=== PATIENT | female | born 1960 | race Two or more races ===

== ENCOUNTER 2020-10-24 23:59 | Emergency (ER) | payer OTHER ==
[~2020-10-24] VITALS: Ht 170.2 cm; Wt 102.7 kg
[2020-10-25 00:02] VITALS: BP 123/77
== END 2020-10-25 00:10 | disposition home or self-care (01) ==
LOC: ER 10-25
DX: R44.8 Other symptoms and signs involving general sensations and perceptions (principal); F32.9 Major depressive disorder, single episode, unspecified; Z90.49 Acquired absence of other specified parts of digestive tract
CPT/HCPCS: 99281

== ENCOUNTER 2020-12-26 21:57 | Inpatient (IN) | payer OTHER ==
[~2020-12-26] VITALS: Ht 170.2 cm; Wt 112.0 kg
[2020-12-26] MEDS ORDERED: dexamethasone 4mg/ml inj IV ONE (22:35)
[2020-12-26 22:57] LABS: BASOPHILS % (AUTO) 0.3 % (0-1); EOSINOPHILS % (AUTO) 0.1 % (0-6); HEMATOCRIT 41.6 % (35.0-45.0); HEMOGLOBIN 14.4 g/dl (12.0-16.0); LYMPHOCYTES # (AUTO) 0.7 X10'3 (1.1-4.8); MEAN CORPUSCULAR HEMOGLOBIN 30.1 PG (27.0-31.0); MEAN CORPUSCULAR HGB CONC 34.6 g/dL (33.0-36.5); MEAN CORPUSCULAR VOLUME 87.2 FL (78-98); MEAN PLATELET VOLUME 8.4 FL (7.4-10.4); MONOCYTES # (AUTO) 0.5 X10'3 (0-0.9); MONOCYTES % (AUTO) 4.6 % (2-12); NEUTROPHILS # (AUTO) 9.8 X10'3 (1.8-7.7); PLATELET COUNT 219 X10'3 (140-440); RED BLOOD COUNT 4.77 X10'6 (4.20-5.60); RED CELL DISTRIBUTION WIDTH 13.9 % (11.5-14.5)
[2020-12-26 23:23] LABS: D-DIMER 0.61 MG/L FEU (0-0.50)
[2020-12-26 23:40] LABS: ALANINE AMINOTRANSFERASE 73 U/L (12-78); ALBUMIN 3.2 G/DL (3.4-5.0); ALBUMIN/GLOBULIN RATIO 0.7 (1.1-1.5); ALKALINE PHOSPHATASE 130 IU/L (46-116); ANION GAP 8 (8-16); ASPARTATE AMINO TRANSFERASE 62 U/L (10-37); BILIRUBIN,TOTAL 0.4 MG/DL (0.1-1.0); BLOOD UREA NITROGEN 19 MG/DL (7-18); BUN/CREATININE RATIO 15.3 (6.6-38.0); CALCIUM 8.8 MG/DL (8.5-10.1); CHLORIDE 99 MMOL/L (99-107); CREATININE 1.24 MG/DL (0.40-0.90); GLUCOSE 280 MG/DL (70-104); POTASSIUM 3.7 MMOL/L (3.5-5.1); SODIUM 133 MMOL/L (135-145); TOTAL CARBON DIOXIDE 25.6 MMOL/L (24-32); TOTAL PROTEIN 7.9 G/DL (6.4-8.2); eGFR 44 ML/MIN
[2020-12-26] MEDS ORDERED: proCHLORperazine 10 MG/2 ml inj IV ONE (23:50)
[2020-12-26] MEDS ORDERED: acetaminophen 325mg tablet PO ONE (23:50)
[2020-12-27] MEDS ORDERED: magnesium hydroxide 30ml (MOM) UD suspension PO PRN (01:40)
[2020-12-27] MEDS ORDERED: potassium Cl 20 mEq SR tablet PO PRN ×2 (01:40)
[2020-12-27] MEDS ORDERED: magnesium 4gm in 100ml NS 100 ML IV PRN (01:40)
[2020-12-27] MEDS ORDERED: magnesium 2GM in 50ml NS 50 ML IV PRN (01:40)
[2020-12-27] MEDS ORDERED: potassium Cl 40MEQ/1/2NS 520ml 520 ML IV PRN ×2 (01:40)
[2020-12-27] MEDS ORDERED: magnesium Cl slow-release 64mg tablet PO PRN (01:40)
[2020-12-27] MEDS ORDERED: mag hydrox/Alum hydrox/simeth 30ml oral suspension PO PRN (01:40)
[2020-12-27] MEDS ORDERED: acetaminophen 325mg tablet PO PRN (01:40)
[2020-12-27] MEDS ORDERED: ROSU10TA28 PO (02:22)
[2020-12-27] MEDS ORDERED: ARIP30TA22 PO (02:22)
[2020-12-27] MEDS ORDERED: BUPR300T86 PO (02:22)
[2020-12-27] MEDS ORDERED: GABA600T13 PO (02:22)
[2020-12-27] MEDS ORDERED: MELO-102 PO (02:22)
[2020-12-27] MEDS ORDERED: OXYB-58 PO (02:22)
[2020-12-27] MEDS ORDERED: LEVO75TA PO (02:22)
[2020-12-27] MEDS ORDERED: ALBU18HF2 IH (02:22)
[2020-12-27] MEDS ORDERED: TIZA4TAB5 PO (02:22)
[2020-12-27] MEDS ORDERED: FEXO-236 PO (02:22)
[2020-12-27] MEDS ORDERED: NEBI10TA2 PO (02:22)
[2020-12-27] MEDS: ALBUTEROL INHALER 1 PUFF/90 MCG INHALER IH SCH ×5 (04:00→23:52)
[2020-12-27] MEDS: K and/or MAG REPLACEMENT MC SCH ×2 (07:10→20:00)
[2020-12-27] MEDS: CefTRIAXone 2gm/D5W 50ml BAG 50 ML IV SCH (08:23)
[2020-12-27] MEDS: azithromycin/NS 500mg/250ml 250 ML IV SCH (08:23)
[2020-12-27] MEDS: heparin, porcine 5000 units/ml vial SQ SCH ×2 (08:23→20:39)
[2020-12-27] MEDS: dexamethasone 4mg/ml inj IV SCH ×2 (08:24→16:00)
[2020-12-27] MEDS: normal saline 1000ml 1,000 ML IV SCH (08:24)
[2020-12-27] MEDS ORDERED: normal saline 1000ml 1,000 ML IV ONE (10:25)
[2020-12-27] MEDS ORDERED: iohexol 350MG/ML 100ml bottle IV ONE (12:36)
[2020-12-27] MEDS ORDERED: BRIM5DRO3 EACHEYE (13:06)
[2020-12-27] MEDS: HYDROcodone/acetaminophen 5mg/325mg tablet PO PRN (14:48)
[2020-12-27] MEDS ORDERED: ALBUTEROL INHALER 1 PUFF/90 MCG INHALER IH PRN (19:15)
[2020-12-27] MEDS ORDERED: HYDROcodone/acetaminophen 5mg/325mg tablet PO ONE (20:10)
[2020-12-27] MEDS: lactobacillus rhamnosus 10,000 MMU CELLS/CAPSULE PO SCH (20:38)
[2020-12-27] MEDS: brimonidine 0.2% 5 ML ophthalmic drops EACHEYE SCH (20:46)
[2020-12-27] MEDS: tizanidine 4mg tablet PO PRN (20:58)
[2020-12-27 22:00] VITALS: BP 157/83
[2020-12-28] MEDS: morphine 2 MG/ML inj. syringe IV PRN ×2 (00:47→21:47)
[2020-12-28] MEDS: atorvastatin 20mg tablet PO SCH ×2 (00:55→19:57)
[2020-12-28] MEDS: gabapentin 300mg capsule PO SCH ×4 (00:56→19:57)
[2020-12-28] MEDS: ondansetron/PF 4mg/2ml inj IV PRN ×3 (01:39→21:47)
[2020-12-28 02:00] VITALS: BP 133/54
[2020-12-28] MEDS: ALBUTEROL INHALER 1 PUFF/90 MCG INHALER IH SCH ×6 (03:37→23:00)
[2020-12-28] MEDS: HYDROcodone/acetaminophen 5mg/325mg tablet PO PRN ×2 (05:29→14:57)
[2020-12-28 06:00] VITALS: BP 129/80
[2020-12-28] MEDS: K and/or MAG REPLACEMENT MC SCH ×2 (08:00→20:00)
[2020-12-28] MEDS: CefTRIAXone 2gm/D5W 50ml BAG 50 ML IV SCH (08:36)
[2020-12-28] MEDS: lactobacillus rhamnosus 10,000 MMU CELLS/CAPSULE PO SCH ×2 (08:38→19:56)
[2020-12-28] MEDS: loratadine 10mg tablet PO SCH (08:38)
[2020-12-28] MEDS: azithromycin/NS 500mg/250ml 250 ML IV SCH (08:38)
[2020-12-28] MEDS: buPROPion SR 150mg tablet PO SCH ×2 (08:38→19:56)
[2020-12-28] MEDS: oxybutynin 5mg tablet PO SCH ×2 (08:38→19:56)
[2020-12-28] MEDS: heparin, porcine 5000 units/ml vial SQ SCH ×2 (08:39→19:59)
[2020-12-28] MEDS: levoTHYROXINE 75mcg tablet PO SCH (08:39)
[2020-12-28] MEDS: metoprolol tartrate 50mg tablet PO SCH ×2 (08:39→19:58)
[2020-12-28] MEDS: brimonidine 0.2% 5 ML ophthalmic drops EACHEYE SCH ×2 (08:40→21:48)
[2020-12-28] MEDS: ARIPIPRAZOLE 15 MG TABLET PO SCH (08:42)
[2020-12-28] MEDS: dexamethasone 4mg/ml inj IV SCH ×3 (08:47→15:00)
[2020-12-28 09:26] LABS: BASOPHILS % (AUTO) 0.1 % (0-1); EOSINOPHILS % (AUTO) 0 % (0-6); HEMATOCRIT 38.9 % (35.0-45.0); HEMOGLOBIN 13.2 g/dl (12.0-16.0); LYMPHOCYTES # (AUTO) 0.8 X10'3 (1.1-4.8); LYMPHOCYTES % (AUTO) 4.8 % (21-51); MEAN CORPUSCULAR HGB CONC 33.8 g/dL (33.0-36.5); MEAN CORPUSCULAR VOLUME 85.9 FL (78-98); MEAN PLATELET VOLUME 8.6 FL (7.4-10.4); MONOCYTES # (AUTO) 0.5 X10'3 (0-0.9); MONOCYTES % (AUTO) 3.1 % (2-12); NEUTROPHILS # (AUTO) 15.1 X10'3 (1.8-7.7); PLATELET COUNT 305 X10'3 (140-440); RED BLOOD COUNT 4.53 X10'6 (4.20-5.60); WHITE BLOOD COUNT 16.4 X10'3 (4.5-11.0)
[2020-12-28 09:43] LABS: D-DIMER 0.54 MG/L FEU (0-0.50)
[2020-12-28 10:25] LABS: ALANINE AMINOTRANSFERASE 61 U/L (12-78); ALBUMIN 2.9 G/DL (3.4-5.0); ALBUMIN/GLOBULIN RATIO 0.6 (1.1-1.5); ALKALINE PHOSPHATASE 118 IU/L (46-116); ANION GAP 11 (8-16); ASPARTATE AMINO TRANSFERASE 53 U/L (10-37); BILIRUBIN,TOTAL 0.4 MG/DL (0.1-1.0); BLOOD UREA NITROGEN 17 MG/DL (7-18); C-REACTIVE PROTEIN 20.27 MG/DL (0.0-0.5); CALCIUM 8.3 MG/DL (8.5-10.1); CHLORIDE 102 MMOL/L (99-107); CREATININE 0.85 MG/DL (0.40-0.90); GLUCOSE 246 MG/DL (70-104); LACTATE DEHYDROGENASE 623 U/L (81-234); MAGNESIUM 2.3 MG/DL (1.5-2.4); POTASSIUM 3.8 MMOL/L (3.5-5.1); SODIUM 139 MMOL/L (135-145); TOTAL CARBON DIOXIDE 25.8 MMOL/L (24-32); TOTAL PROTEIN 7.5 G/DL (6.4-8.2); eGFR 68 ML/MIN
[2020-12-28 11:00] VITALS: BP 147/78
[2020-12-28] MEDS: acetaminophen 325mg tablet PO PRN (13:04)
[2020-12-28 15:00] VITALS: BP 132/67
[2020-12-28] MEDS: benzonatate 100mg capsule PO PRN (15:47)
[2020-12-28 18:00] VITALS: BP 157/87
[2020-12-28] MEDS ORDERED: REMDESIVIR INJ 200 MG in normal saline 100ml IV soln 60 ML IV ONE (18:20)
[2020-12-28] MEDS ORDERED: dexamethasone 4mg/ml inj IV SCH (20:00)
[2020-12-28] MEDS: dexamethasone 6 MG in NS 50ml IV soln IV SCH (21:48)
[2020-12-28 22:00] VITALS: BP 152/77
[2020-12-28] MEDS: tizanidine 4mg tablet PO PRN (23:40)
[2020-12-29 02:00] VITALS: BP 127/72
[2020-12-29] MEDS: ALBUTEROL INHALER 1 PUFF/90 MCG INHALER IH SCH ×6 (03:05→23:56)
[2020-12-29] MEDS: normal saline 1000ml 1,000 ML IV SCH (05:50)
[2020-12-29 06:00] VITALS: BP 131/64
[2020-12-29] MEDS: K and/or MAG REPLACEMENT MC SCH ×2 (08:00→20:00)
[2020-12-29 08:34] LABS: BASOPHILS % (AUTO) 0 % (0-1); EOSINOPHILS % (AUTO) 0 % (0-6); HEMATOCRIT 38.7 % (35.0-45.0); HEMOGLOBIN 12.8 g/dl (12.0-16.0); LYMPHOCYTES # (AUTO) 0.6 X10'3 (1.1-4.8); MEAN CORPUSCULAR HEMOGLOBIN 29.1 PG (27.0-31.0); MEAN CORPUSCULAR VOLUME 88.2 FL (78-98); MEAN PLATELET VOLUME 8.4 FL (7.4-10.4); MONOCYTES # (AUTO) 0.5 X10'3 (0-0.9); MONOCYTES % (AUTO) 3.5 % (2-12); NEUTROPHILS # (AUTO) 13.2 X10'3 (1.8-7.7); NEUTROPHILS % (AUTO) 92.5 % (42-75); PLATELET COUNT 331 X10'3 (140-440); RED BLOOD COUNT 4.39 X10'6 (4.20-5.60); RED CELL DISTRIBUTION WIDTH 14.1 % (11.5-14.5); WHITE BLOOD COUNT 14.3 X10'3 (4.5-11.0)
[2020-12-29] MEDS: buPROPion SR 150mg tablet PO SCH ×2 (08:35→20:37)
[2020-12-29] MEDS: ARIPIPRAZOLE 15 MG TABLET PO SCH (08:35)
[2020-12-29] MEDS: gabapentin 300mg capsule PO SCH ×3 (08:36→20:38)
[2020-12-29] MEDS: benzonatate 100mg capsule PO PRN ×2 (08:36→17:54)
[2020-12-29] MEDS: oxybutynin 5mg tablet PO SCH ×2 (08:36→20:37)
[2020-12-29] MEDS: levoTHYROXINE 75mcg tablet PO SCH (08:36)
[2020-12-29] MEDS: lactobacillus rhamnosus 10,000 MMU CELLS/CAPSULE PO SCH ×2 (08:37→20:37)
[2020-12-29] MEDS: loratadine 10mg tablet PO SCH (08:37)
[2020-12-29] MEDS: metoprolol tartrate 50mg tablet PO SCH ×2 (08:37→20:47)
[2020-12-29] MEDS: REMDESIVIR INJ 100 MG in normal saline 100ml IV soln 80 ML IV SCH (08:38)
[2020-12-29] MEDS: dexamethasone 6 MG in NS 50ml IV soln IV SCH ×2 (08:38→20:39)
[2020-12-29] MEDS: CefTRIAXone 2gm/D5W 50ml BAG 50 ML IV SCH (08:38)
[2020-12-29] MEDS: brimonidine 0.2% 5 ML ophthalmic drops EACHEYE SCH ×2 (08:38→20:38)
[2020-12-29 08:50] LABS: ALANINE AMINOTRANSFERASE 54 U/L (12-78); ALBUMIN 2.7 G/DL (3.4-5.0); ALBUMIN/GLOBULIN RATIO 0.6 (1.1-1.5); ALKALINE PHOSPHATASE 116 IU/L (46-116); ANION GAP 8 (8-16); ASPARTATE AMINO TRANSFERASE 46 U/L (10-37); BILIRUBIN,TOTAL 0.4 MG/DL (0.1-1.0); BLOOD UREA NITROGEN 18 MG/DL (7-18); BUN/CREATININE RATIO 20.9 (6.6-38.0); C-REACTIVE PROTEIN 23.69 MG/DL (0.0-0.5); CALCIUM 8.8 MG/DL (8.5-10.1); CHLORIDE 104 MMOL/L (99-107); CREATININE 0.86 MG/DL (0.40-0.90); GLUCOSE 297 MG/DL (70-104); LACTATE DEHYDROGENASE 846 U/L (81-234); MAGNESIUM 2.9 MG/DL (1.5-2.4); POTASSIUM 4.2 MMOL/L (3.5-5.1); SODIUM 139 MMOL/L (135-145); TOTAL CARBON DIOXIDE 27.5 MMOL/L (24-32); TOTAL PROTEIN 7.4 G/DL (6.4-8.2); eGFR 68 ML/MIN
[2020-12-29 09:49] LABS: D-DIMER 1.87 MG/L FEU (0-0.50)
[2020-12-29 10:00] VITALS: BP 147/77
[2020-12-29 14:00] VITALS: BP 144/74
[2020-12-29] MEDS ORDERED: LORazepam 1 MG tablet PO PRN (14:10)
[2020-12-29 18:00] VITALS: BP 149/61
[2020-12-29] MEDS: LORazepam 2 mg/ml vial IV PRN (20:32)
[2020-12-29] MEDS: atorvastatin 20mg tablet PO SCH (20:37)
[2020-12-29] MEDS: enoxaparin 40mg/0.4ml syringe SUBCUT SCH (20:38)
[2020-12-29 22:00] VITALS: BP 147/72
[2020-12-30] MEDS: methylPREDNISolone sod succ 125mg/2ml vial IV SCH ×3 (01:41→15:43)
[2020-12-30] MEDS: benzonatate 100mg capsule PO PRN ×3 (01:48→22:37)
[2020-12-30 02:00] VITALS: BP 151/61
[2020-12-30] MEDS: LORazepam 2 mg/ml vial IV PRN (02:37)
[2020-12-30] MEDS: ALBUTEROL INHALER 1 PUFF/90 MCG INHALER IH SCH ×6 (04:48→23:20)
[2020-12-30 06:46] VITALS: BP 137/68
[2020-12-30 07:34] LABS: BASOPHILS % (AUTO) 0.1 % (0-1); EOSINOPHILS % (AUTO) 0 % (0-6); HEMATOCRIT 40.3 % (35.0-45.0); HEMOGLOBIN 13.3 g/dl (12.0-16.0); LYMPHOCYTES # (AUTO) 0.6 X10'3 (1.1-4.8); LYMPHOCYTES % (AUTO) 3.8 % (21-51); MEAN CORPUSCULAR HEMOGLOBIN 29.1 PG (27.0-31.0); MEAN CORPUSCULAR VOLUME 88.2 FL (78-98); MEAN PLATELET VOLUME 8.5 FL (7.4-10.4); MONOCYTES # (AUTO) 0.5 X10'3 (0-0.9); NEUTROPHILS # (AUTO) 15.8 X10'3 (1.8-7.7); NEUTROPHILS % (AUTO) 93.1 % (42-75); PLATELET COUNT 269 X10'3 (140-440); RED BLOOD COUNT 4.57 X10'6 (4.20-5.60); RED CELL DISTRIBUTION WIDTH 13.8 % (11.5-14.5); WHITE BLOOD COUNT 16.9 X10'3 (4.5-11.0)
[2020-12-30 07:45] LABS: D-DIMER 25.32 MG/L FEU (0-0.50)
[2020-12-30 07:56] LABS: ALANINE AMINOTRANSFERASE 62 U/L (12-78); ALBUMIN 2.7 G/DL (3.4-5.0); ALBUMIN/GLOBULIN RATIO 0.6 (1.1-1.5); ALKALINE PHOSPHATASE 135 IU/L (46-116); ANION GAP 14 (8-16); ASPARTATE AMINO TRANSFERASE 79 U/L (10-37); BILIRUBIN,TOTAL 0.7 MG/DL (0.1-1.0); BLOOD UREA NITROGEN 17 MG/DL (7-18); BUN/CREATININE RATIO 19.3 (6.6-38.0); C-REACTIVE PROTEIN 21.15 MG/DL (0.0-0.5); CALCIUM 8.6 MG/DL (8.5-10.1); CHLORIDE 101 MMOL/L (99-107); CREATININE 0.88 MG/DL (0.40-0.90); GLUCOSE 310 MG/DL (70-104); LACTATE DEHYDROGENASE 1196 U/L (81-234); MAGNESIUM 2.7 MG/DL (1.5-2.4); POTASSIUM 4.1 MMOL/L (3.5-5.1); SODIUM 140 MMOL/L (135-145); TOTAL CARBON DIOXIDE 24.9 MMOL/L (24-32); TOTAL PROTEIN 7.3 G/DL (6.4-8.2); eGFR 66 ML/MIN
[2020-12-30] MEDS: brimonidine 0.2% 5 ML ophthalmic drops EACHEYE SCH ×2 (08:00→21:44)
[2020-12-30] MEDS: oxybutynin 5mg tablet PO SCH ×2 (08:00→21:45)
[2020-12-30] MEDS: K and/or MAG REPLACEMENT MC SCH ×2 (08:00→20:00)
[2020-12-30] MEDS: CefTRIAXone 2gm/D5W 50ml BAG 50 ML IV SCH (08:00)
[2020-12-30] MEDS: metoprolol tartrate 50mg tablet PO SCH ×2 (08:00→21:53)
[2020-12-30] MEDS: lactobacillus rhamnosus 10,000 MMU CELLS/CAPSULE PO SCH ×2 (08:00→20:00)
[2020-12-30] MEDS: ARIPIPRAZOLE 15 MG TABLET PO SCH (08:00)
[2020-12-30] MEDS: loratadine 10mg tablet PO SCH (08:00)
[2020-12-30] MEDS: gabapentin 300mg capsule PO SCH ×3 (08:01→21:45)
[2020-12-30] MEDS: buPROPion SR 150mg tablet PO SCH ×2 (08:01→21:45)
[2020-12-30] MEDS: enoxaparin 40mg/0.4ml syringe SUBCUT SCH (08:01)
[2020-12-30] MEDS: levoTHYROXINE 75mcg tablet PO SCH (08:01)
[2020-12-30 10:00] VITALS: BP 133/69
[2020-12-30] MEDS: REMDESIVIR INJ 100 MG in normal saline 100ml IV soln 80 ML IV SCH (11:02)
[2020-12-30 14:00] VITALS: BP 131/64
[2020-12-30] MEDS ORDERED: enoxaparin 60mg/0.6ml syringe SUBCUT ONE (17:35)
[2020-12-30 18:00] VITALS: BP 163/65
[2020-12-30] MEDS: enoxaparin 100mg/ml syringe SUBCUT SCH (21:45)
[2020-12-30] MEDS: atorvastatin 20mg tablet PO SCH (21:46)
[2020-12-30] MEDS: HYDROcodone/acetaminophen 5mg/325mg tablet PO PRN (21:46)
[2020-12-30 22:00] VITALS: BP 142/52
[2020-12-30] MEDS ORDERED: iohexol 350MG/ML 100ml bottle IV ONE (22:04)
[2020-12-30] MEDS: tizanidine 4mg tablet PO PRN (22:37)
[2020-12-31] MEDS: methylPREDNISolone sod succ 125mg/2ml vial IV SCH (00:43)
[2020-12-31 02:12] VITALS: BP 113/49
[2020-12-31] MEDS: ALBUTEROL INHALER 1 PUFF/90 MCG INHALER IH SCH ×5 (03:16→20:29)
[2020-12-31] MEDS: normal saline 1000ml 1,000 ML IV SCH (05:50)
[2020-12-31 06:52] VITALS: BP 134/69
[2020-12-31] MEDS: methylPREDNISolone sod succ/PF 40mg inj. IV SCH ×2 (07:26→15:33)
[2020-12-31] MEDS: enoxaparin 100mg/ml syringe SUBCUT SCH ×2 (07:26→21:08)
[2020-12-31] MEDS: benzonatate 100mg capsule PO PRN ×2 (07:26→15:47)
[2020-12-31] MEDS: CefTRIAXone 2gm/D5W 50ml BAG 50 ML IV SCH (07:26)
[2020-12-31] MEDS: brimonidine 0.2% 5 ML ophthalmic drops EACHEYE SCH ×2 (08:00→21:06)
[2020-12-31] MEDS: K and/or MAG REPLACEMENT MC SCH ×2 (08:00→20:00)
[2020-12-31 08:30] LABS: EOSINOPHILS % (AUTO) 0 % (0-6); LYMPHOCYTES # (AUTO) 0.7 X10'3 (1.1-4.8)
[2020-12-31 08:38] LABS: BASOPHILS # (AUTO) 0.1 X10'3 (0-0.2); BASOPHILS % (AUTO) 0.3 % (0-1); HEMATOCRIT 39.9 % (35.0-45.0); HEMOGLOBIN 13.4 g/dl (12.0-16.0); LYMPHOCYTES % (AUTO) 3.2 % (21-51); MEAN CORPUSCULAR HGB CONC 33.5 g/dL (33.0-36.5); MEAN CORPUSCULAR VOLUME 86.6 FL (78-98); MEAN PLATELET VOLUME 8.8 FL (7.4-10.4); MONOCYTES # (AUTO) 0.5 X10'3 (0-0.9); MONOCYTES % (AUTO) 2.2 % (2-12); NEUTROPHILS # (AUTO) 19.9 X10'3 (1.8-7.7); NEUTROPHILS % (AUTO) 94.3 % (42-75); PLATELET COUNT 338 X10'3 (140-440); RED BLOOD COUNT 4.61 X10'6 (4.20-5.60); RED CELL DISTRIBUTION WIDTH 13.9 % (11.5-14.5); WHITE BLOOD COUNT 21.1 X10'3 (4.5-11.0)
[2020-12-31 09:02] LABS: ALANINE AMINOTRANSFERASE 72 U/L (12-78); ALBUMIN 2.6 G/DL (3.4-5.0); ALBUMIN/GLOBULIN RATIO 0.6 (1.1-1.5); ALKALINE PHOSPHATASE 161 IU/L (46-116); ANION GAP 14 (8-16); ASPARTATE AMINO TRANSFERASE 73 U/L (10-37); BILIRUBIN,TOTAL 0.6 MG/DL (0.1-1.0); BLOOD UREA NITROGEN 20 MG/DL (7-18); BUN/CREATININE RATIO 20.4 (6.6-38.0); C-REACTIVE PROTEIN 19.48 MG/DL (0.0-0.5); CALCIUM 8.6 MG/DL (8.5-10.1); CHLORIDE 101 MMOL/L (99-107); CREATININE 0.98 MG/DL (0.40-0.90); GLUCOSE 345 MG/DL (70-104); LACTATE DEHYDROGENASE 1500 U/L (81-234); POTASSIUM 4.2 MMOL/L (3.5-5.1); SODIUM 141 MMOL/L (135-145); TOTAL CARBON DIOXIDE 26.1 MMOL/L (24-32); TOTAL PROTEIN 7.2 G/DL (6.4-8.2); eGFR 58 ML/MIN
[2020-12-31 09:14] LABS: PLATELET ESTIMATE NORMAL; TOTAL CELLS COUNTED 100
[2020-12-31] MEDS: buPROPion SR 150mg tablet PO SCH ×2 (09:28→21:07)
[2020-12-31] MEDS: REMDESIVIR INJ 100 MG in normal saline 100ml IV soln 80 ML IV SCH (09:28)
[2020-12-31] MEDS: oxybutynin 5mg tablet PO SCH ×2 (09:28→21:07)
[2020-12-31] MEDS: levoTHYROXINE 75mcg tablet PO SCH (09:28)
[2020-12-31] MEDS: loratadine 10mg tablet PO SCH (09:28)
[2020-12-31] MEDS: ARIPIPRAZOLE 15 MG TABLET PO SCH (09:29)
[2020-12-31] MEDS: lactobacillus rhamnosus 10,000 MMU CELLS/CAPSULE PO SCH ×2 (09:29→21:07)
[2020-12-31] MEDS: gabapentin 300mg capsule PO SCH ×3 (09:29→21:08)
[2020-12-31 10:00] LABS: D-DIMER 26.43 MG/L FEU (0-0.50)
[2020-12-31] MEDS ORDERED: MESSAGE TO PHARMACY PO ONE (12:05)
[2020-12-31] MEDS ORDERED: guaiFENesin 200 MG/10 ML oral syrup UD cup PO PRN (12:05)
[2020-12-31] MEDS ORDERED: glucagon, human recombinant 1mg kit SUBCUT PRN (12:05)
[2020-12-31] MEDS ORDERED: dextrose 50%-water 50ml dispensing syringe IV PRN ×2 (12:05)
[2020-12-31] MEDS ORDERED: dextrose ORAL solution 15 GM/59 ML bottle PO PRN ×2 (12:05)
[2020-12-31 12:13] VITALS: BP 146/50
[2020-12-31 12:24] LABS: HEMOGLOBIN A1C 7.8 % (4.5-6.2)
[2020-12-31] MEDS: insulin Lispro (HumaLOG) vial - multi-dose SQ SCH ×3 (12:28→21:15)
[2020-12-31] MEDS: metoprolol tartrate 50mg tablet PO SCH ×2 (12:35→21:20)
[2020-12-31 14:00] VITALS: BP 133/61
[2020-12-31 18:00] VITALS: BP 143/63
[2020-12-31] MEDS: HYDROcodone/acetaminophen 5mg/325mg tablet PO PRN (21:07)
[2020-12-31] MEDS: guaiFENesin 200 MG/10 ML oral syrup UD cup PO PRN (21:07)
[2020-12-31] MEDS: tizanidine 4mg tablet PO PRN (21:07)
[2020-12-31] MEDS: atorvastatin 20mg tablet PO SCH (21:08)
[2020-12-31] MEDS: insulin glargine (Lantus) pen - multi-dose SQ SCH (21:17)
[2020-12-31 22:00] VITALS: BP 135/45
[2021-01-01] MEDS: ALBUTEROL INHALER 1 PUFF/90 MCG INHALER IH SCH ×6 (00:16→20:10)
[2021-01-01] MEDS: methylPREDNISolone sod succ/PF 40mg inj. IV SCH ×3 (00:24→15:52)
[2021-01-01 02:00] VITALS: BP 114/49
[2021-01-01] MEDS: benzonatate 100mg capsule PO PRN ×3 (02:27→20:12)
[2021-01-01 06:25] VITALS: BP 87/66
[2021-01-01] MEDS: guaiFENesin 200 MG/10 ML oral syrup UD cup PO PRN ×3 (07:03→19:45)
[2021-01-01] MEDS: loratadine 10mg tablet PO SCH (07:04)
[2021-01-01] MEDS: buPROPion SR 150mg tablet PO SCH ×2 (07:04→19:42)
[2021-01-01] MEDS: CefTRIAXone 2gm/D5W 50ml BAG 50 ML IV SCH (07:04)
[2021-01-01] MEDS: levoTHYROXINE 75mcg tablet PO SCH (07:04)
[2021-01-01] MEDS: gabapentin 300mg capsule PO SCH ×3 (07:04→21:00)
[2021-01-01] MEDS: oxybutynin 5mg tablet PO SCH ×2 (07:04→19:43)
[2021-01-01] MEDS: enoxaparin 100mg/ml syringe SUBCUT SCH ×2 (07:04→19:45)
[2021-01-01] MEDS: ARIPIPRAZOLE 15 MG TABLET PO SCH (07:04)
[2021-01-01] MEDS: lactobacillus rhamnosus 10,000 MMU CELLS/CAPSULE PO SCH ×2 (07:04→19:43)
[2021-01-01] MEDS: brimonidine 0.2% 5 ML ophthalmic drops EACHEYE SCH ×2 (07:05→20:00)
[2021-01-01] MEDS: K and/or MAG REPLACEMENT MC SCH ×2 (08:00→19:00)
[2021-01-01] MEDS: metoprolol tartrate 50mg tablet PO SCH ×2 (08:00→19:44)
[2021-01-01 08:49] LABS: HEMATOCRIT 39.7 % (35.0-45.0); MEAN CORPUSCULAR VOLUME 88.3 FL (78-98)
[2021-01-01 08:51] LABS: HEMOGLOBIN 12.9 g/dl (12.0-16.0); MEAN CORPUSCULAR HEMOGLOBIN 28.8 PG (27.0-31.0); MEAN CORPUSCULAR HGB CONC 32.6 g/dL (33.0-36.5); MEAN PLATELET VOLUME 9.1 FL (7.4-10.4); PLATELET COUNT 318 X10'3 (140-440); RED CELL DISTRIBUTION WIDTH 13.8 % (11.5-14.5); WHITE BLOOD COUNT 15.5 X10'3 (4.5-11.0)
[2021-01-01] MEDS: REMDESIVIR INJ 100 MG in normal saline 100ml IV soln 80 ML IV SCH (08:54)
[2021-01-01] MEDS: insulin Lispro (HumaLOG) vial - multi-dose SQ SCH ×3 (08:56→21:32)
[2021-01-01 09:26] LABS: ALANINE AMINOTRANSFERASE 56 U/L (12-78); ALBUMIN 2.4 G/DL (3.4-5.0); ALBUMIN/GLOBULIN RATIO 0.6 (1.1-1.5); ALKALINE PHOSPHATASE 151 IU/L (46-116); ANION GAP 13 (8-16); ASPARTATE AMINO TRANSFERASE 56 U/L (10-37); BILIRUBIN,TOTAL 0.6 MG/DL (0.1-1.0); BLOOD UREA NITROGEN 20 MG/DL (7-18); BUN/CREATININE RATIO 21.7 (6.6-38.0); C-REACTIVE PROTEIN 13.05 MG/DL (0.0-0.5); CALCIUM 8.3 MG/DL (8.5-10.1); CHLORIDE 100 MMOL/L (99-107); CREATININE 0.92 MG/DL (0.40-0.90); D-DIMER 6.42 MG/L FEU (0-0.50); GLUCOSE 327 MG/DL (70-104); LACTATE DEHYDROGENASE 1490 U/L (81-234); MAGNESIUM 2.7 MG/DL (1.5-2.4); POTASSIUM 3.9 MMOL/L (3.5-5.1); SODIUM 140 MMOL/L (135-145); TOTAL CARBON DIOXIDE 27.2 MMOL/L (24-32); TOTAL PROTEIN 6.7 G/DL (6.4-8.2); eGFR 62 ML/MIN
[2021-01-01 10:00] VITALS: BP 97/64
[2021-01-01] MEDS ORDERED: etomidate 2mg/ml inj. ONE (10:00)
[2021-01-01 10:50] LABS: PLATELET ESTIMATE NORMAL; TOTAL CELLS COUNTED 100
[2021-01-01 14:00] VITALS: BP 101/68
[2021-01-01 18:00] VITALS: BP 101/68
[2021-01-01] MEDS: HYDROcodone/acetaminophen 5mg/325mg tablet PO PRN (19:43)
[2021-01-01] MEDS: zolpidem 5mg tablet PO PRN (19:45)
[2021-01-01] MEDS: atorvastatin 20mg tablet PO SCH (21:00)
[2021-01-01] MEDS: insulin glargine (Lantus) pen - multi-dose SQ SCH (21:29)
[2021-01-01 22:00] VITALS: BP 151/69
[2021-01-01] MEDS: LORazepam 2 mg/ml vial IV PRN (23:37)
[2021-01-02] MEDS: ALBUTEROL INHALER 1 PUFF/90 MCG INHALER IH SCH ×5 (00:13→20:28)
[2021-01-02] MEDS: methylPREDNISolone sod succ/PF 40mg inj. IV SCH ×3 (01:10→16:47)
[2021-01-02 02:00] VITALS: BP 147/68
[2021-01-02] MEDS: guaiFENesin 200 MG/10 ML oral syrup UD cup PO PRN ×3 (02:23→16:47)
[2021-01-02] MEDS: benzonatate 100mg capsule PO PRN ×2 (04:33→19:50)
[2021-01-02] MEDS: tizanidine 4mg tablet PO PRN ×2 (04:42→21:44)
[2021-01-02] MEDS: normal saline 1000ml 1,000 ML IV SCH (05:34)
[2021-01-02 06:29] VITALS: BP 131/66
[2021-01-02] MEDS: buPROPion SR 150mg tablet PO SCH ×2 (07:08→19:36)
[2021-01-02] MEDS: ARIPIPRAZOLE 15 MG TABLET PO SCH (07:08)
[2021-01-02] MEDS: gabapentin 300mg capsule PO SCH ×3 (07:08→21:44)
[2021-01-02] MEDS: oxybutynin 5mg tablet PO SCH ×2 (07:08→19:36)
[2021-01-02] MEDS: loratadine 10mg tablet PO SCH (07:08)
[2021-01-02] MEDS: lactobacillus rhamnosus 10,000 MMU CELLS/CAPSULE PO SCH ×2 (07:08→19:36)
[2021-01-02] MEDS: levoTHYROXINE 75mcg tablet PO SCH (07:08)
[2021-01-02] MEDS: CefTRIAXone 2gm/D5W 50ml BAG 50 ML IV SCH (07:09)
[2021-01-02] MEDS: enoxaparin 100mg/ml syringe SUBCUT SCH ×2 (07:09→19:37)
[2021-01-02] MEDS: metoprolol tartrate 50mg tablet PO SCH ×3 (07:09→19:36)
[2021-01-02] MEDS: brimonidine 0.2% 5 ML ophthalmic drops EACHEYE SCH ×2 (07:10→19:38)
[2021-01-02] MEDS: K and/or MAG REPLACEMENT MC SCH ×2 (08:00→19:22)
[2021-01-02] MEDS: insulin Lispro (HumaLOG) vial - multi-dose SQ SCH ×3 (09:06→21:43)
[2021-01-02 09:15] LABS: MAGNESIUM 2.8 MG/DL (1.5-2.4)
[2021-01-02] MEDS ORDERED: naloxone 0.4 mg/ml inj IV PRN (09:20)
[2021-01-02 09:40] LABS: D-DIMER 5.26 MG/L FEU (0-0.50)
[2021-01-02] MEDS: morphine 2 MG/ML inj. syringe IV PRN ×4 (09:45→22:47)
[2021-01-02 10:00] LABS: C-REACTIVE PROTEIN 12.07 MG/DL (0.0-0.5); LACTATE DEHYDROGENASE 1380 U/L (81-234)
[2021-01-02 10:11] LABS: BASOPHILS % (AUTO) 0 % (0-1); EOSINOPHILS % (AUTO) 0 % (0-6); HEMATOCRIT 38.6 % (35.0-45.0); HEMOGLOBIN 12.9 g/dl (12.0-16.0); LYMPHOCYTES # (AUTO) 0.4 X10'3 (1.1-4.8); LYMPHOCYTES % (AUTO) 2.5 % (21-51); MEAN CORPUSCULAR HGB CONC 33.3 g/dL (33.0-36.5); MEAN CORPUSCULAR VOLUME 87.1 FL (78-98); MEAN PLATELET VOLUME 9.3 FL (7.4-10.4); MONOCYTES # (AUTO) 0.3 X10'3 (0-0.9); MONOCYTES % (AUTO) 1.7 % (2-12); NEUTROPHILS % (AUTO) 95.8 % (42-75); PLATELET COUNT 350 X10'3 (140-440); RED BLOOD COUNT 4.43 X10'6 (4.20-5.60); RED CELL DISTRIBUTION WIDTH 13.8 % (11.5-14.5); WHITE BLOOD COUNT 17.7 X10'3 (4.5-11.0)
[2021-01-02 10:17] VITALS: BP 103/70
[2021-01-02 10:27] LABS: ALANINE AMINOTRANSFERASE 48 U/L (12-78); ALBUMIN 2.3 G/DL (3.4-5.0); ALBUMIN/GLOBULIN RATIO 0.5 (1.1-1.5); ALKALINE PHOSPHATASE 149 IU/L (46-116); ANION GAP 16 (8-16); ASPARTATE AMINO TRANSFERASE 51 U/L (10-37); BILIRUBIN,TOTAL 0.6 MG/DL (0.1-1.0); BLOOD UREA NITROGEN 16 MG/DL (7-18); CHLORIDE 102 MMOL/L (99-107); GLUCOSE 267 MG/DL (70-104); POTASSIUM 3.9 MMOL/L (3.5-5.1); SODIUM 141 MMOL/L (135-145); TOTAL CARBON DIOXIDE 23.3 MMOL/L (24-32); TOTAL PROTEIN 6.6 G/DL (6.4-8.2)
[2021-01-02 10:37] LABS: BUN/CREATININE RATIO 19.3 (6.6-38.0); CALCIUM 8.4 MG/DL (8.5-10.1); CREATININE 0.83 MG/DL (0.40-0.90); eGFR 70 ML/MIN
[2021-01-02 13:22] LABS: ABG BASE EXCESS 4.9 mmol/L (-2.0-2.0); ABG HCO3 28.5 mmol/L (22.0-26.0); ABG OXYGEN SATURATION 86.3 % (94-97); ABG PO2 (T) 53.4 mmHg (75.0-100.0); ALLEN'S TEST POSITIVE; FCOHb 0.4 % (0.0-3.9); FLOW 60 L/min; FMetHb 0.3 % (0.0-1.5); FO2Hb 85.7 % (94-97); PATIENT TEMPERATURE 37.8; TOTAL HEMOGLOBIN 14.1 G/dl (12.0-16.0)
[2021-01-02 14:45] VITALS: BP 137/61
[2021-01-02 14:48] LABS: PLATELET ESTIMATE NORMAL; TOTAL CELLS COUNTED 100
[2021-01-02] MEDS: lactose-reduced food (Ensure Enlive) - 237ml bottle PO SCH (18:00)
[2021-01-02] MEDS: insulin glargine (Lantus) pen - multi-dose SQ SCH (21:40)
[2021-01-02] MEDS: atorvastatin 20mg tablet PO SCH (21:44)
[2021-01-02] MEDS: HYDROcodone/acetaminophen 5mg/325mg tablet PO PRN (21:44)
[2021-01-02] MEDS: nystatin 500,000 unit/5ML UD oral suspension PO SCH (21:48)
[2021-01-02 22:00] VITALS: BP 114/78
[2021-01-02] MEDS: zolpidem 5mg tablet PO PRN (22:46)
[2021-01-03] MEDS: ALBUTEROL INHALER 1 PUFF/90 MCG INHALER IH SCH ×7 (00:33→20:56)
[2021-01-03] MEDS: methylPREDNISolone sod succ/PF 40mg inj. IV SCH ×3 (01:57→16:47)
[2021-01-03 02:00] VITALS: BP 95/62
[2021-01-03] MEDS: normal saline 1000ml 1,000 ML IV SCH ×2 (04:47→09:39)
[2021-01-03] MEDS: guaiFENesin 200 MG/10 ML oral syrup UD cup PO PRN ×3 (05:11→14:18)
[2021-01-03 06:00] VITALS: BP 134/67
[2021-01-03] MEDS: lactose-reduced food (Ensure Enlive) - 237ml bottle PO SCH ×3 (08:00→17:29)
[2021-01-03] MEDS: brimonidine 0.2% 5 ML ophthalmic drops EACHEYE SCH ×2 (08:00→20:00)
[2021-01-03] MEDS: K and/or MAG REPLACEMENT MC SCH ×2 (08:00→19:40)
[2021-01-03 08:51] LABS: MAGNESIUM 2.8 MG/DL (1.5-2.4)
[2021-01-03] MEDS: loratadine 10mg tablet PO SCH (09:31)
[2021-01-03] MEDS: buPROPion SR 150mg tablet PO SCH ×2 (09:31→19:49)
[2021-01-03] MEDS: levoTHYROXINE 75mcg tablet PO SCH (09:32)
[2021-01-03] MEDS: gabapentin 300mg capsule PO SCH ×3 (09:32→22:40)
[2021-01-03] MEDS: oxybutynin 5mg tablet PO SCH ×2 (09:32→19:49)
[2021-01-03] MEDS: nystatin 500,000 unit/5ML UD oral suspension PO SCH ×3 (09:32→21:00)
[2021-01-03] MEDS: ARIPIPRAZOLE 15 MG TABLET PO SCH (09:32)
[2021-01-03] MEDS: lactobacillus rhamnosus 10,000 MMU CELLS/CAPSULE PO SCH ×2 (09:32→19:49)
[2021-01-03] MEDS: metoprolol tartrate 50mg tablet PO SCH ×2 (09:33→19:57)
[2021-01-03] MEDS: enoxaparin 100mg/ml syringe SUBCUT SCH ×2 (09:35→19:50)
[2021-01-03] MEDS: insulin Lispro (HumaLOG) vial - multi-dose SQ SCH ×3 (09:38→19:48)
[2021-01-03] MEDS: benzonatate 100mg capsule PO PRN ×2 (10:23→22:40)
[2021-01-03] MEDS: morphine 2 MG/ML inj. syringe IV PRN ×2 (10:30→22:51)
[2021-01-03 12:00] VITALS: BP 142/79
[2021-01-03 18:00] VITALS: BP 147/64
[2021-01-03] MEDS: LORazepam 2 mg/ml vial IV PRN (19:22)
[2021-01-03 22:00] VITALS: BP 141/72
[2021-01-03] MEDS: atorvastatin 20mg tablet PO SCH (22:41)
[2021-01-03] MEDS: tizanidine 4mg tablet PO PRN (22:49)
[2021-01-03] MEDS: insulin glargine (Lantus) pen - multi-dose SQ SCH (23:04)
[2021-01-04] VITALS (16 sets, daily range): BP systolic 102–183; BP diastolic 50–95
[2021-01-04] MEDS: methylPREDNISolone sod succ/PF 40mg inj. IV SCH ×4 (00:38→23:14)
[2021-01-04] MEDS: ALBUTEROL INHALER 1 PUFF/90 MCG INHALER IH SCH ×3 (00:59→07:00)
[2021-01-04] MEDS: LORazepam 2 mg/ml vial IV PRN ×3 (02:25→11:23)
[2021-01-04] MEDS: ARIPIPRAZOLE 15 MG TABLET PO SCH (08:00)
[2021-01-04] MEDS: brimonidine 0.2% 5 ML ophthalmic drops EACHEYE SCH ×2 (08:00→20:00)
[2021-01-04] MEDS: loratadine 10mg tablet PO SCH (08:00)
[2021-01-04] MEDS: gabapentin 300mg capsule PO SCH ×3 (08:00→21:00)
[2021-01-04] MEDS: oxybutynin 5mg tablet PO SCH ×2 (08:00→20:00)
[2021-01-04] MEDS: buPROPion SR 150mg tablet PO SCH ×2 (08:00→20:00)
[2021-01-04] MEDS: lactobacillus rhamnosus 10,000 MMU CELLS/CAPSULE PO SCH ×2 (08:00→20:00)
[2021-01-04] MEDS: nystatin 500,000 unit/5ML UD oral suspension PO SCH ×3 (08:00→21:00)
[2021-01-04] MEDS: lactose-reduced food (Ensure Enlive) - 237ml bottle PO SCH ×3 (08:00→18:00)
[2021-01-04] MEDS: K and/or MAG REPLACEMENT MC SCH ×2 (08:00→20:00)
[2021-01-04] MEDS: metoprolol tartrate 50mg tablet PO SCH ×2 (08:00→20:00)
[2021-01-04] MEDS: levoTHYROXINE 75mcg tablet PO SCH (08:00)
[2021-01-04 08:29] LABS: EOSINOPHILS % (AUTO) 0 % (0-6); LYMPHOCYTES # (AUTO) 0.3 X10'3 (1.1-4.8); MEAN PLATELET VOLUME 9.2 FL (7.4-10.4)
[2021-01-04 08:30] LABS: BASOPHILS # (AUTO) 0.2 X10'3 (0-0.2); BASOPHILS % (AUTO) 0.8 % (0-1); HEMATOCRIT 37.8 % (35.0-45.0); LYMPHOCYTES % (AUTO) 1.3 % (21-51); MEAN CORPUSCULAR HEMOGLOBIN 28.5 PG (27.0-31.0); MEAN CORPUSCULAR HGB CONC 31.9 g/dL (33.0-36.5); MEAN CORPUSCULAR VOLUME 89.2 FL (78-98); MONOCYTES # (AUTO) 0.3 X10'3 (0-0.9); MONOCYTES % (AUTO) 1.2 % (2-12); NEUTROPHILS % (AUTO) 96.7 % (42-75); PLATELET COUNT 305 X10'3 (140-440); RED BLOOD COUNT 4.23 X10'6 (4.20-5.60); RED CELL DISTRIBUTION WIDTH 13.7 % (11.5-14.5); WHITE BLOOD COUNT 21.7 X10'3 (4.5-11.0)
[2021-01-04] MEDS: morphine 2 MG/ML inj. syringe IV PRN ×2 (08:37→21:58)
[2021-01-04 08:43] LABS: ABG HCO3 27.8 mmol/L (22.0-26.0); ABG OXYGEN SATURATION 89.5 % (94-97); ABG PCO2 (T) 38.2 mmHg (32.0-45.0); ABG PO2 (T) 55.2 mmHg (75.0-100.0); ALLEN'S TEST Modified; FCOHb 0.5 % (0.0-3.9); FMetHb 0.3 % (0.0-1.5); FO2Hb 88.8 % (94-97); PATIENT TEMPERATURE 36.4; TOTAL HEMOGLOBIN 13.3 G/dl (12.0-16.0)
[2021-01-04 08:44] LABS: D-DIMER 3.31 MG/L FEU (0-0.50)
[2021-01-04] MEDS: enoxaparin 100mg/ml syringe SUBCUT SCH ×2 (08:55→20:00)
[2021-01-04] MEDS: normal saline 1000ml 1,000 ML IV SCH (08:55)
[2021-01-04] MEDS: insulin Lispro (HumaLOG) vial - multi-dose SQ SCH ×2 (08:58→23:04)
[2021-01-04 09:31] LABS: C-REACTIVE PROTEIN 12.53 MG/DL (0.0-0.5)
[2021-01-04] MEDS ORDERED: TOCILIZUMAB 200mg/10ml inj. 800 MG in normal saline 100ml IV soln 60 ML IV ONE (10:10)
[2021-01-04] MEDS: ipratropium/albuterol 3ml nebule NEB SCH ×4 (11:35→23:59)
[2021-01-04] MEDS ORDERED: dexmedetomidin/NS 400mcg/100ml 100 ML IV SCH (12:50)
[2021-01-04] MEDS: dexmedetomidine/D5W 100mL 100 ML IV SCH ×2 (13:11→21:57)
[2021-01-04] MEDS: budesonide 0.5mg/2ml UD nebule IH SCH (19:40)
[2021-01-04] MEDS: atorvastatin 20mg tablet PO SCH (21:00)
[2021-01-04] MEDS: insulin glargine (Lantus) pen - multi-dose SQ SCH (21:00)
[2021-01-04] MEDS: labetalol 20mg/4ml (5mg/ml) syringe IV PRN (23:14)
[2021-01-05] VITALS (25 sets, daily range): BP systolic 113–206; BP diastolic 49–97
[2021-01-05] MEDS: morphine 2 MG/ML inj. syringe IV PRN ×3 (01:25→21:49)
[2021-01-05] MEDS: dexmedetomidine/D5W 100mL 100 ML IV SCH ×6 (02:39→21:30)
[2021-01-05] MEDS: insulin Lispro (HumaLOG) vial - multi-dose SQ SCH ×3 (02:45→21:32)
[2021-01-05] MEDS ORDERED: furosemide 40mg/4ml inj IV ONE (03:15)
[2021-01-05] MEDS: ipratropium/albuterol 3ml nebule NEB SCH ×5 (04:08→20:16)
[2021-01-05 06:11] LABS: BASOPHILS % (AUTO) 0 % (0-1); EOSINOPHILS % (AUTO) 0 % (0-6)
[2021-01-05 06:14] LABS: HEMATOCRIT 41.1 % (35.0-45.0); HEMOGLOBIN 13.5 g/dl (12.0-16.0); LYMPHOCYTES # (AUTO) 0.4 X10'3 (1.1-4.8); LYMPHOCYTES % (AUTO) 1.9 % (21-51); MEAN CORPUSCULAR VOLUME 87.8 FL (78-98); MEAN PLATELET VOLUME 9.1 FL (7.4-10.4); MONOCYTES # (AUTO) 0.3 X10'3 (0-0.9); MONOCYTES % (AUTO) 1.1 % (2-12); NEUTROPHILS # (AUTO) 21.2 X10'3 (1.8-7.7); PLATELET COUNT 319 X10'3 (140-440); RED BLOOD COUNT 4.67 X10'6 (4.20-5.60); WHITE BLOOD COUNT 21.8 X10'3 (4.5-11.0)
[2021-01-05] MEDS: nitroGLYCERIN-Tridil 50MG/D5W 250 ML IV PRN (06:15)
[2021-01-05 06:35] LABS: D-DIMER 3.58 MG/L FEU (0-0.50)
[2021-01-05] MEDS: normal saline 1000ml 1,000 ML IV SCH (07:00)
[2021-01-05] MEDS: methylPREDNISolone sod succ/PF 40mg inj. IV SCH ×2 (07:07→15:32)
[2021-01-05] MEDS: budesonide 0.5mg/2ml UD nebule IH SCH ×2 (07:51→20:16)
[2021-01-05] MEDS: K and/or MAG REPLACEMENT MC SCH ×2 (08:00→20:00)
[2021-01-05] MEDS: lactose-reduced food (Ensure Enlive) - 237ml bottle PO SCH ×3 (08:00→18:00)
[2021-01-05] MEDS: brimonidine 0.2% 5 ML ophthalmic drops EACHEYE SCH ×2 (08:00→20:00)
[2021-01-05] MEDS: levoTHYROXINE sod inj. 100mcg/5 ml vial IV SCH ×2 (08:00→10:08)
[2021-01-05] MEDS: lactobacillus rhamnosus 10,000 MMU CELLS/CAPSULE PO SCH ×2 (08:06→19:50)
[2021-01-05] MEDS: gabapentin 300mg capsule PO SCH ×3 (08:07→21:22)
[2021-01-05] MEDS: oxybutynin 5mg tablet PO SCH ×2 (08:07→20:00)
[2021-01-05] MEDS: ARIPIPRAZOLE 15 MG TABLET PO SCH (08:07)
[2021-01-05] MEDS: buPROPion SR 150mg tablet PO SCH ×2 (08:07→19:50)
[2021-01-05] MEDS: loratadine 10mg tablet PO SCH (08:07)
[2021-01-05] MEDS: metoprolol tartrate 50mg tablet PO SCH ×2 (08:08→20:00)
[2021-01-05] MEDS: nystatin 500,000 unit/5ML UD oral suspension PO SCH ×3 (08:08→21:22)
[2021-01-05] MEDS: enoxaparin 100mg/ml syringe SUBCUT SCH ×2 (08:09→19:50)
[2021-01-05 10:20] LABS: BASOPHILS % (AUTO) 0 % (0-1); LYMPHOCYTES # (AUTO) 0.3 X10'3 (1.1-4.8); MONOCYTES # (AUTO) 0.3 X10'3 (0-0.9); MONOCYTES % (AUTO) 1.3 % (2-12); NEUTROPHILS % (AUTO) 97.1 % (42-75)
[2021-01-05 10:21] LABS: EOSINOPHILS % (AUTO) 0 % (0-6); HEMATOCRIT 42.3 % (35.0-45.0); HEMOGLOBIN 13.6 g/dl (12.0-16.0); LYMPHOCYTES % (AUTO) 1.6 % (21-51); MEAN CORPUSCULAR HEMOGLOBIN 28.6 PG (27.0-31.0); MEAN CORPUSCULAR HGB CONC 32.1 g/dL (33.0-36.5); MEAN CORPUSCULAR VOLUME 88.9 FL (78-98); MEAN PLATELET VOLUME 9.5 FL (7.4-10.4); PLATELET COUNT 332 X10'3 (140-440); RED BLOOD COUNT 4.75 X10'6 (4.20-5.60); WHITE BLOOD COUNT 20.7 X10'3 (4.5-11.0)
[2021-01-05 10:27] LABS: D-DIMER 3.46 MG/L FEU (0-0.50); PARTIAL THROMBOPLASTIN TIME 27 SECONDS (22-32)
[2021-01-05 10:31] LABS: ALANINE AMINOTRANSFERASE 54 U/L (12-78); ALBUMIN 1.9 G/DL (3.4-5.0); ALBUMIN/GLOBULIN RATIO 0.4 (1.1-1.5); ALKALINE PHOSPHATASE 185 IU/L (46-116); ANION GAP 5 (8-16); ASPARTATE AMINO TRANSFERASE 41 U/L (10-37); BILIRUBIN,TOTAL 0.5 MG/DL (0.1-1.0); BLOOD UREA NITROGEN 21 MG/DL (7-18); CALCIUM 8.3 MG/DL (8.5-10.1); CHLORIDE 107 MMOL/L (99-107); GLUCOSE 214 MG/DL (70-104); POTASSIUM 4.1 MMOL/L (3.5-5.1); SODIUM 145 MMOL/L (135-145); TOTAL CARBON DIOXIDE 32.8 MMOL/L (24-32); TOTAL PROTEIN 6.5 G/DL (6.4-8.2); eGFR 86 ML/MIN
[2021-01-05 10:37] LABS: C-REACTIVE PROTEIN 7.58 MG/DL (0.0-0.5); LACTATE DEHYDROGENASE 1899 U/L (81-234); MAGNESIUM 2.4 MG/DL (1.5-2.4); PHOSPHORUS 4.2 MG/DL (2.3-4.5)
[2021-01-05 11:32] LABS: ABG BASE EXCESS 7.8 mmol/L (-2.0-2.0); ABG HCO3 32.5 mmol/L (22.0-26.0); ABG OXYGEN SATURATION 96.7 % (94-97); ABG PCO2 (T) 45.1 mmHg (32.0-45.0); ABG PO2 (T) 87.1 mmHg (75.0-100.0); ALLEN'S TEST POSITIVE; FCOHb 0.4 % (0.0-3.9); FMetHb 0.3 % (0.0-1.5); TIDAL VOLUME 670 mL; TOTAL HEMOGLOBIN 14.4 G/dl (12.0-16.0)
[2021-01-05] MEDS: cholecalciferol (vitamin D3) 1,000 unit (25mcg) tablet PO SCH ×2 (11:47→11:56)
[2021-01-05] MEDS: atorvastatin 20mg tablet PO SCH (21:22)
[2021-01-05] MEDS: insulin glargine (Lantus) pen - multi-dose SQ SCH (21:26)
[2021-01-06] VITALS (25 sets, daily range): BP systolic 105–168; BP diastolic 53–87
[2021-01-06] MEDS: ipratropium/albuterol 3ml nebule NEB SCH ×7 (00:37→22:43)
[2021-01-06] MEDS: methylPREDNISolone sod succ/PF 40mg inj. IV SCH ×3 (00:52→15:06)
[2021-01-06] MEDS: dexmedetomidine/D5W 100mL 100 ML IV SCH ×7 (01:22→22:08)
[2021-01-06 03:02] LABS: BASOPHILS # (AUTO) 0.1 X10'3 (0-0.2); BASOPHILS % (AUTO) 0.5 % (0-1); EOSINOPHILS % (AUTO) 0.2 % (0-6); HEMATOCRIT 39.6 % (35.0-45.0); HEMOGLOBIN 12.5 g/dl (12.0-16.0); LYMPHOCYTES # (AUTO) 0.3 X10'3 (1.1-4.8); LYMPHOCYTES % (AUTO) 1.8 % (21-51); MEAN CORPUSCULAR HEMOGLOBIN 28.4 PG (27.0-31.0); MEAN CORPUSCULAR HGB CONC 31.6 g/dL (33.0-36.5); MEAN CORPUSCULAR VOLUME 89.9 FL (78-98); MEAN PLATELET VOLUME 9.2 FL (7.4-10.4); MONOCYTES # (AUTO) 0.3 X10'3 (0-0.9); NEUTROPHILS # (AUTO) 16.8 X10'3 (1.8-7.7); NEUTROPHILS % (AUTO) 95.5 % (42-75); PLATELET COUNT 349 X10'3 (140-440); WHITE BLOOD COUNT 17.6 X10'3 (4.5-11.0)
[2021-01-06 03:11] LABS: D-DIMER 3.12 MG/L FEU (0-0.50)
[2021-01-06 03:23] LABS: ALANINE AMINOTRANSFERASE 56 U/L (12-78); ALBUMIN 1.8 G/DL (3.4-5.0); ALBUMIN/GLOBULIN RATIO 0.4 (1.1-1.5); ALKALINE PHOSPHATASE 127 IU/L (46-116); ANION GAP 3 (8-16); ASPARTATE AMINO TRANSFERASE 34 U/L (10-37); BILIRUBIN,TOTAL 0.5 MG/DL (0.1-1.0); BLOOD UREA NITROGEN 22 MG/DL (7-18); BUN/CREATININE RATIO 27.8 (6.6-38.0); CALCIUM 8.1 MG/DL (8.5-10.1); CHLORIDE 108 MMOL/L (99-107); CREATININE 0.79 MG/DL (0.40-0.90); GLUCOSE 160 MG/DL (70-104); LACTATE DEHYDROGENASE 739 U/L (81-234); MAGNESIUM 2.4 MG/DL (1.5-2.4); PHOSPHORUS 4.3 MG/DL (2.3-4.5); POTASSIUM 4.1 MMOL/L (3.5-5.1); SODIUM 145 MMOL/L (135-145); eGFR 74 ML/MIN
[2021-01-06] MEDS: normal saline 1000ml 1,000 ML IV SCH (03:50)
[2021-01-06] MEDS: lactose-reduced food (Ensure Enlive) - 237ml bottle PO SCH ×3 (08:00→18:00)
[2021-01-06] MEDS: K and/or MAG REPLACEMENT MC SCH ×2 (08:00→20:00)
[2021-01-06] MEDS: metoprolol tartrate 50mg tablet PO SCH ×2 (08:09→21:02)
[2021-01-06] MEDS: ARIPIPRAZOLE 15 MG TABLET PO SCH (08:09)
[2021-01-06] MEDS: enoxaparin 100mg/ml syringe SUBCUT SCH ×2 (08:09→21:03)
[2021-01-06] MEDS: oxybutynin 5mg tablet PO SCH ×2 (08:09→21:03)
[2021-01-06] MEDS: gabapentin 300mg capsule PO SCH ×3 (08:10→21:02)
[2021-01-06] MEDS: levoTHYROXINE sod inj. 100mcg/5 ml vial IV SCH (08:10)
[2021-01-06] MEDS: buPROPion SR 150mg tablet PO SCH ×2 (08:10→21:02)
[2021-01-06] MEDS: nystatin 500,000 unit/5ML UD oral suspension PO SCH ×3 (08:10→21:03)
[2021-01-06] MEDS: cholecalciferol (vitamin D3) 1,000 unit (25mcg) tablet PO SCH (08:10)
[2021-01-06] MEDS: lactobacillus rhamnosus 10,000 MMU CELLS/CAPSULE PO SCH ×2 (08:13→21:02)
[2021-01-06] MEDS: loratadine 10mg tablet PO SCH (08:14)
[2021-01-06] MEDS: brimonidine 0.2% 5 ML ophthalmic drops EACHEYE SCH ×2 (08:15→20:00)
[2021-01-06] MEDS: nitroGLYCERIN-Tridil 50MG/D5W 250 ML IV PRN (08:35)
[2021-01-06] MEDS: insulin Lispro (HumaLOG) vial - multi-dose SQ SCH ×3 (08:42→21:52)
[2021-01-06] MEDS: budesonide 0.5mg/2ml UD nebule IH SCH ×2 (09:39→19:09)
[2021-01-06] MEDS: benzonatate 100mg capsule PO PRN (12:30)
[2021-01-06 13:58] LABS: C-REACTIVE PROTEIN 3.04 MG/DL (0.0-0.5)
[2021-01-06] MEDS: atorvastatin 20mg tablet PO SCH (21:03)
[2021-01-06] MEDS: morphine 2 MG/ML inj. syringe IV PRN (21:15)
[2021-01-06] MEDS: insulin glargine (Lantus) pen - multi-dose SQ SCH (21:53)
[2021-01-07] VITALS (23 sets, daily range): BP systolic 105–162; BP diastolic 57–87
[2021-01-07] MEDS: dexmedetomidine/D5W 100mL 100 ML IV SCH ×8 (00:47→22:29)
[2021-01-07] MEDS: methylPREDNISolone sod succ/PF 40mg inj. IV SCH ×4 (01:15→23:59)
[2021-01-07] MEDS: insulin Lispro (HumaLOG) vial - multi-dose SQ SCH ×4 (02:30→21:07)
[2021-01-07 02:54] LABS: BASOPHILS % (AUTO) 0.2 % (0-1); EOSINOPHILS % (AUTO) 0.3 % (0-6); HEMATOCRIT 37.6 % (35.0-45.0); HEMOGLOBIN 12.4 g/dl (12.0-16.0); LYMPHOCYTES # (AUTO) 0.5 X10'3 (1.1-4.8); MEAN CORPUSCULAR HGB CONC 32.9 g/dL (33.0-36.5); MEAN PLATELET VOLUME 9.3 FL (7.4-10.4); MONOCYTES # (AUTO) 0.7 X10'3 (0-0.9); MONOCYTES % (AUTO) 3.8 % (2-12); NEUTROPHILS % (AUTO) 92.7 % (42-75); PLATELET COUNT 334 X10'3 (140-440); RED BLOOD COUNT 4.27 X10'6 (4.20-5.60); RED CELL DISTRIBUTION WIDTH 14.1 % (11.5-14.5); WHITE BLOOD COUNT 18.3 X10'3 (4.5-11.0)
[2021-01-07] MEDS: ipratropium/albuterol 3ml nebule NEB SCH ×3 (03:37→11:00)
[2021-01-07 03:42] LABS: ALANINE AMINOTRANSFERASE 59 U/L (12-78); ALBUMIN 1.9 G/DL (3.4-5.0); ALBUMIN/GLOBULIN RATIO 0.5 (1.1-1.5); ALKALINE PHOSPHATASE 107 IU/L (46-116); ANION GAP 2 (8-16); ASPARTATE AMINO TRANSFERASE 38 U/L (10-37); BILIRUBIN,TOTAL 0.6 MG/DL (0.1-1.0); BLOOD UREA NITROGEN 24 MG/DL (7-18); BUN/CREATININE RATIO 35.8 (6.6-38.0); CALCIUM 8.2 MG/DL (8.5-10.1); CHLORIDE 107 MMOL/L (99-107); CREATININE 0.67 MG/DL (0.40-0.90); GLUCOSE 125 MG/DL (70-104); LACTATE DEHYDROGENASE 727 U/L (81-234); MAGNESIUM 2.3 MG/DL (1.5-2.4); PHOSPHORUS 4.2 MG/DL (2.3-4.5); POTASSIUM 3.8 MMOL/L (3.5-5.1); SODIUM 143 MMOL/L (135-145); TOTAL CARBON DIOXIDE 33.9 MMOL/L (24-32); TOTAL PROTEIN 5.6 G/DL (6.4-8.2); eGFR 90 ML/MIN
[2021-01-07] MEDS: budesonide 0.5mg/2ml UD nebule IH SCH ×2 (07:36→20:07)
[2021-01-07] MEDS: K and/or MAG REPLACEMENT MC SCH ×2 (08:00→20:00)
[2021-01-07] MEDS: nitroGLYCERIN-Tridil 50MG/D5W 250 ML IV PRN (08:18)
[2021-01-07] MEDS: enoxaparin 100mg/ml syringe SUBCUT SCH ×2 (08:22→20:37)
[2021-01-07] MEDS: levoTHYROXINE sod inj. 100mcg/5 ml vial IV SCH (08:22)
[2021-01-07] MEDS: nystatin 500,000 unit/5ML UD oral suspension PO SCH ×3 (08:23→20:37)
[2021-01-07] MEDS: lactobacillus rhamnosus 10,000 MMU CELLS/CAPSULE PO SCH ×2 (08:23→20:36)
[2021-01-07] MEDS: ARIPIPRAZOLE 15 MG TABLET PO SCH (08:23)
[2021-01-07] MEDS: gabapentin 300mg capsule PO SCH ×3 (08:23→20:36)
[2021-01-07] MEDS: oxybutynin 5mg tablet PO SCH ×2 (08:24→20:36)
[2021-01-07] MEDS: pantoprazole 40mg Tablet.DR PO SCH (08:24)
[2021-01-07] MEDS: metoprolol tartrate 50mg tablet PO SCH ×2 (08:24→21:09)
[2021-01-07] MEDS: cholecalciferol (vitamin D3) 1,000 unit (25mcg) tablet PO SCH (08:24)
[2021-01-07] MEDS: loratadine 10mg tablet PO SCH (08:24)
[2021-01-07] MEDS: normal saline 1000ml 1,000 ML IV SCH ×2 (08:25→21:29)
[2021-01-07] MEDS: buPROPion SR 150mg tablet PO SCH ×2 (08:25→20:36)
[2021-01-07] MEDS: brimonidine 0.2% 5 ML ophthalmic drops EACHEYE SCH ×2 (08:32→20:37)
[2021-01-07] MEDS: lactose-reduced food (Ensure Enlive) - 237ml bottle PO SCH ×3 (08:32→20:35)
[2021-01-07] MEDS: morphine 2 MG/ML inj. syringe IV PRN ×2 (09:58→22:29)
[2021-01-07] MEDS ORDERED: budesonide 0.5mg/2ml UD nebule IH PRN (11:40)
[2021-01-07 12:00] LABS: C-REACTIVE PROTEIN 1.98 MG/DL (0.0-0.5)
[2021-01-07] MEDS: amLODIPine 5mg tablet PO SCH (12:49)
[2021-01-07] MEDS: losartan 50mg tablet PO SCH (12:49)
[2021-01-07] MEDS: atorvastatin 20mg tablet PO SCH (20:36)
[2021-01-07] MEDS: tizanidine 4mg tablet PO PRN (20:54)
[2021-01-07] MEDS: insulin glargine (Lantus) pen - multi-dose SQ SCH (21:08)
[2021-01-08] VITALS (25 sets, daily range): BP systolic 96–170; BP diastolic 47–106
[2021-01-08] MEDS: dexmedetomidine/D5W 100mL 100 ML IV SCH ×4 (01:46→16:32)
[2021-01-08] MEDS: insulin Lispro (HumaLOG) vial - multi-dose SQ SCH ×2 (02:10→20:38)
[2021-01-08 04:10] LABS: BASOPHILS % (AUTO) 0.2 % (0-1); EOSINOPHILS % (AUTO) 0.1 % (0-6); HEMATOCRIT 39.7 % (35.0-45.0); HEMOGLOBIN 12.9 g/dl (12.0-16.0); LYMPHOCYTES # (AUTO) 0.4 X10'3 (1.1-4.8); LYMPHOCYTES % (AUTO) 2.2 % (21-51); MEAN CORPUSCULAR HEMOGLOBIN 28.7 PG (27.0-31.0); MEAN CORPUSCULAR HGB CONC 32.6 g/dL (33.0-36.5); MEAN PLATELET VOLUME 9.4 FL (7.4-10.4); MONOCYTES # (AUTO) 0.6 X10'3 (0-0.9); MONOCYTES % (AUTO) 3.6 % (2-12); NEUTROPHILS # (AUTO) 15.8 X10'3 (1.8-7.7); NEUTROPHILS % (AUTO) 93.9 % (42-75); PLATELET COUNT 324 X10'3 (140-440); RED BLOOD COUNT 4.51 X10'6 (4.20-5.60); WHITE BLOOD COUNT 16.8 X10'3 (4.5-11.0)
[2021-01-08 04:25] LABS: D-DIMER 3.01 MG/L FEU (0-0.50)
[2021-01-08 05:00] LABS: ALANINE AMINOTRANSFERASE 57 U/L (12-78); ALBUMIN 2.1 G/DL (3.4-5.0); ALBUMIN/GLOBULIN RATIO 0.6 (1.1-1.5); ALKALINE PHOSPHATASE 103 IU/L (46-116); ANION GAP 5 (8-16); ASPARTATE AMINO TRANSFERASE 32 U/L (10-37); BILIRUBIN,TOTAL 0.6 MG/DL (0.1-1.0); BLOOD UREA NITROGEN 20 MG/DL (7-18); BUN/CREATININE RATIO 32.3 (6.6-38.0); CALCIUM 8.5 MG/DL (8.5-10.1); CHLORIDE 104 MMOL/L (99-107); CREATININE 0.62 MG/DL (0.40-0.90); GLUCOSE 130 MG/DL (70-104); POTASSIUM 3.9 MMOL/L (3.5-5.1); SODIUM 143 MMOL/L (135-145); TOTAL CARBON DIOXIDE 33.8 MMOL/L (24-32); TOTAL PROTEIN 5.7 G/DL (6.4-8.2); eGFR > 90 ML/MIN
[2021-01-08 05:01] LABS: C-REACTIVE PROTEIN 0.98 MG/DL (0.0-0.5); LACTATE DEHYDROGENASE 598 U/L (81-234); MAGNESIUM 2.3 MG/DL (1.5-2.4); PHOSPHORUS 4.6 MG/DL (2.3-4.5)
[2021-01-08] MEDS: budesonide 0.5mg/2ml UD nebule IH SCH ×2 (07:25→18:59)
[2021-01-08] MEDS: ipratropium/albuterol 3ml nebule NEB PRN ×2 (07:25→18:59)
[2021-01-08] MEDS: metoprolol tartrate 50mg tablet PO SCH ×2 (08:00→20:00)
[2021-01-08] MEDS: brimonidine 0.2% 5 ML ophthalmic drops EACHEYE SCH ×2 (08:00→20:27)
[2021-01-08] MEDS: K and/or MAG REPLACEMENT MC SCH ×2 (08:00→20:00)
[2021-01-08] MEDS: lactose-reduced food (Ensure Enlive) - 237ml bottle PO SCH ×3 (08:00→17:11)
[2021-01-08] MEDS: enoxaparin 100mg/ml syringe SUBCUT SCH ×2 (08:51→20:18)
[2021-01-08] MEDS: amLODIPine 5mg tablet PO SCH (08:52)
[2021-01-08] MEDS: gabapentin 300mg capsule PO SCH ×3 (08:53→20:19)
[2021-01-08] MEDS: nystatin 500,000 unit/5ML UD oral suspension PO SCH ×3 (08:53→20:18)
[2021-01-08] MEDS: ARIPIPRAZOLE 15 MG TABLET PO SCH (08:53)
[2021-01-08] MEDS: oxybutynin 5mg tablet PO SCH ×2 (08:54→20:19)
[2021-01-08] MEDS: lactobacillus rhamnosus 10,000 MMU CELLS/CAPSULE PO SCH ×2 (08:54→20:19)
[2021-01-08] MEDS: buPROPion SR 150mg tablet PO SCH ×2 (08:54→20:19)
[2021-01-08] MEDS: pantoprazole 40mg Tablet.DR PO SCH (08:54)
[2021-01-08] MEDS: cholecalciferol (vitamin D3) 1,000 unit (25mcg) tablet PO SCH (08:54)
[2021-01-08] MEDS: loratadine 10mg tablet PO SCH (08:54)
[2021-01-08] MEDS: methylPREDNISolone sod succ/PF 40mg inj. IV SCH ×3 (08:58→23:51)
[2021-01-08] MEDS: losartan 50mg tablet PO SCH (08:59)
[2021-01-08] MEDS: levoTHYROXINE sod inj. 100mcg/5 ml vial IV SCH (09:00)
[2021-01-08] MEDS: LORazepam 2 mg/ml vial IV PRN (17:10)
[2021-01-08] MEDS: guaiFENesin 200 MG/10 ML oral syrup UD cup PO PRN (20:18)
[2021-01-08] MEDS: tizanidine 4mg tablet PO PRN (20:18)
[2021-01-08] MEDS: atorvastatin 20mg tablet PO SCH (20:19)
[2021-01-08] MEDS: morphine 2 MG/ML inj. syringe IV PRN (20:22)
[2021-01-08] MEDS: insulin glargine (Lantus) pen - multi-dose SQ SCH (20:38)
[2021-01-08] MEDS: normal saline 1000ml 1,000 ML IV SCH (23:51)
[2021-01-09] VITALS (24 sets, daily range): BP systolic 94–170; BP diastolic 40–89
[2021-01-09] MEDS: insulin Lispro (HumaLOG) vial - multi-dose SQ SCH ×3 (02:21→20:49)
[2021-01-09 03:15] LABS: BASOPHILS % (AUTO) 0.1 % (0-1); EOSINOPHILS % (AUTO) 0.2 % (0-6); HEMOGLOBIN 13.6 g/dl (12.0-16.0); LYMPHOCYTES # (AUTO) 0.4 X10'3 (1.1-4.8); MEAN CORPUSCULAR HEMOGLOBIN 28.7 PG (27.0-31.0); MEAN CORPUSCULAR HGB CONC 32.4 g/dL (33.0-36.5); MEAN CORPUSCULAR VOLUME 88.4 FL (78-98); MEAN PLATELET VOLUME 9.4 FL (7.4-10.4); MONOCYTES # (AUTO) 0.7 X10'3 (0-0.9); MONOCYTES % (AUTO) 3.9 % (2-12); NEUTROPHILS # (AUTO) 17.3 X10'3 (1.8-7.7); NEUTROPHILS % (AUTO) 93.8 % (42-75); PLATELET COUNT 301 X10'3 (140-440); RED BLOOD COUNT 4.75 X10'6 (4.20-5.60); RED CELL DISTRIBUTION WIDTH 13.6 % (11.5-14.5); WHITE BLOOD COUNT 18.5 X10'3 (4.5-11.0)
[2021-01-09 03:17] LABS: ALANINE AMINOTRANSFERASE 65 U/L (12-78); ALBUMIN 2.3 G/DL (3.4-5.0); ALBUMIN/GLOBULIN RATIO 0.6 (1.1-1.5); ALKALINE PHOSPHATASE 103 IU/L (46-116); ANION GAP 4 (8-16); ASPARTATE AMINO TRANSFERASE 32 U/L (10-37); BILIRUBIN,TOTAL 0.8 MG/DL (0.1-1.0); BLOOD UREA NITROGEN 19 MG/DL (7-18); BUN/CREATININE RATIO 29.7 (6.6-38.0); CALCIUM 8.4 MG/DL (8.5-10.1); CHLORIDE 105 MMOL/L (99-107); CREATININE 0.64 MG/DL (0.40-0.90); GLUCOSE 159 MG/DL (70-104); MAGNESIUM 2.4 MG/DL (1.5-2.4); PHOSPHORUS 4.4 MG/DL (2.3-4.5); POTASSIUM 4.1 MMOL/L (3.5-5.1); SODIUM 144 MMOL/L (135-145); TOTAL CARBON DIOXIDE 34.7 MMOL/L (24-32); TOTAL PROTEIN 5.9 G/DL (6.4-8.2); eGFR > 90 ML/MIN
[2021-01-09 03:18] LABS: D-DIMER 3.21 MG/L FEU (0-0.50)
[2021-01-09] MEDS: labetalol 20mg/4ml (5mg/ml) syringe IV PRN (03:42)
[2021-01-09] MEDS: dexmedetomidine/D5W 100mL 100 ML IV SCH ×4 (03:43→23:51)
[2021-01-09] MEDS: LORazepam 2 mg/ml vial IV PRN (04:46)
[2021-01-09] MEDS: guaiFENesin 200 MG/10 ML oral syrup UD cup PO PRN (04:47)
[2021-01-09] MEDS: budesonide 0.5mg/2ml UD nebule IH SCH ×2 (07:50→19:43)
[2021-01-09] MEDS: K and/or MAG REPLACEMENT MC SCH (08:00)
[2021-01-09] MEDS: losartan 50mg tablet PO SCH (08:29)
[2021-01-09] MEDS: lactobacillus rhamnosus 10,000 MMU CELLS/CAPSULE PO SCH ×2 (08:29→20:05)
[2021-01-09] MEDS: oxybutynin 5mg tablet PO SCH ×2 (08:29→20:05)
[2021-01-09] MEDS: metoprolol tartrate 50mg tablet PO SCH ×2 (08:30→20:06)
[2021-01-09] MEDS: ARIPIPRAZOLE 15 MG TABLET PO SCH (08:30)
[2021-01-09] MEDS: gabapentin 300mg capsule PO SCH ×3 (08:30→20:26)
[2021-01-09] MEDS: loratadine 10mg tablet PO SCH (08:31)
[2021-01-09] MEDS: cholecalciferol (vitamin D3) 1,000 unit (25mcg) tablet PO SCH (08:31)
[2021-01-09] MEDS: buPROPion SR 150mg tablet PO SCH ×2 (08:31→20:06)
[2021-01-09] MEDS: amLODIPine 5mg tablet PO SCH (08:31)
[2021-01-09] MEDS: pantoprazole 40mg Tablet.DR PO SCH (08:32)
[2021-01-09] MEDS: enoxaparin 100mg/ml syringe SUBCUT SCH ×2 (08:32→20:08)
[2021-01-09] MEDS: nystatin 500,000 unit/5ML UD oral suspension PO SCH ×3 (08:33→20:27)
[2021-01-09] MEDS: brimonidine 0.2% 5 ML ophthalmic drops EACHEYE SCH ×2 (08:36→20:09)
[2021-01-09] MEDS: levoTHYROXINE sod inj. 100mcg/5 ml vial IV SCH (08:37)
[2021-01-09] MEDS: lactose-reduced food (Ensure Enlive) - 237ml bottle PO SCH ×3 (09:03→20:02)
[2021-01-09] MEDS: benzonatate 100mg capsule PO PRN ×2 (10:25→22:08)
[2021-01-09] MEDS: methylPREDNISolone sod succ/PF 40mg inj. IV SCH (15:52)
[2021-01-09] MEDS: atorvastatin 20mg tablet PO SCH (20:27)
[2021-01-09] MEDS: insulin glargine (Lantus) pen - multi-dose SQ SCH (20:43)
[2021-01-09] MEDS: zolpidem 5mg tablet PO PRN (22:08)
[2021-01-10] VITALS (24 sets, daily range): BP systolic 36–116; BP diastolic 30–97
[2021-01-10] MEDS: methylPREDNISolone sod succ/PF 40mg inj. IV SCH ×4 (02:05→23:23)
[2021-01-10] MEDS: dexmedetomidine/D5W 100mL 100 ML IV SCH ×2 (05:49→16:53)
[2021-01-10 07:23] LABS: HEMOGLOBIN 12.6 g/dl (12.0-16.0)
[2021-01-10 07:25] LABS: ALANINE AMINOTRANSFERASE 69 U/L (12-78); ALBUMIN 2.2 G/DL (3.4-5.0); ALBUMIN/GLOBULIN RATIO 0.7 (1.1-1.5); ALKALINE PHOSPHATASE 78 IU/L (46-116); ANION GAP 5 (8-16); ASPARTATE AMINO TRANSFERASE 40 U/L (10-37); BILIRUBIN,TOTAL 0.8 MG/DL (0.1-1.0); BLOOD UREA NITROGEN 26 MG/DL (7-18); BUN/CREATININE RATIO 33.3 (6.6-38.0); C-REACTIVE PROTEIN 0.16 MG/DL (0.0-0.5); CALCIUM 8.2 MG/DL (8.5-10.1); CHLORIDE 106 MMOL/L (99-107); CREATININE 0.78 MG/DL (0.40-0.90); GLUCOSE 159 MG/DL (70-104); HEMATOCRIT 38.2 % (35.0-45.0); LACTATE DEHYDROGENASE 558 U/L (81-234); MAGNESIUM 2.5 MG/DL (1.5-2.4); MEAN CORPUSCULAR HEMOGLOBIN 29.3 PG (27.0-31.0); MEAN CORPUSCULAR HGB CONC 32.9 g/dL (33.0-36.5); MEAN CORPUSCULAR VOLUME 88.8 FL (78-98); MEAN PLATELET VOLUME 9.4 FL (7.4-10.4); PHOSPHORUS 4.6 MG/DL (2.3-4.5); PLATELET COUNT 264 X10'3 (140-440); POTASSIUM 4.4 MMOL/L (3.5-5.1); SODIUM 144 MMOL/L (135-145); TOTAL CARBON DIOXIDE 33.3 MMOL/L (24-32); TOTAL PROTEIN 5.2 G/DL (6.4-8.2); WHITE BLOOD COUNT 16.6 X10'3 (4.5-11.0); eGFR 76 ML/MIN
[2021-01-10] MEDS: K and/or MAG REPLACEMENT MC SCH ×2 (08:00→20:00)
[2021-01-10] MEDS: ipratropium/albuterol 3ml nebule NEB PRN (08:08)
[2021-01-10] MEDS: budesonide 0.5mg/2ml UD nebule IH SCH ×2 (08:08→19:23)
[2021-01-10] MEDS: lactose-reduced food (Ensure Enlive) - 237ml bottle PO SCH ×4 (08:21→20:00)
[2021-01-10] MEDS: ARIPIPRAZOLE 15 MG TABLET PO SCH (08:21)
[2021-01-10] MEDS: metoprolol tartrate 50mg tablet PO SCH ×2 (08:22→20:00)
[2021-01-10] MEDS: buPROPion SR 150mg tablet PO SCH ×2 (08:22→20:24)
[2021-01-10] MEDS: pantoprazole 40mg Tablet.DR PO SCH (08:22)
[2021-01-10] MEDS: losartan 50mg tablet PO SCH (08:22)
[2021-01-10] MEDS: amLODIPine 5mg tablet PO SCH (08:22)
[2021-01-10] MEDS: lactobacillus rhamnosus 10,000 MMU CELLS/CAPSULE PO SCH ×2 (08:22→20:24)
[2021-01-10] MEDS: cholecalciferol (vitamin D3) 1,000 unit (25mcg) tablet PO SCH (08:22)
[2021-01-10] MEDS: gabapentin 300mg capsule PO SCH ×3 (08:23→20:30)
[2021-01-10] MEDS: oxybutynin 5mg tablet PO SCH ×2 (08:23→20:24)
[2021-01-10] MEDS: loratadine 10mg tablet PO SCH (08:23)
[2021-01-10] MEDS: levoTHYROXINE sod inj. 100mcg/5 ml vial IV SCH (08:23)
[2021-01-10] MEDS: enoxaparin 100mg/ml syringe SUBCUT SCH ×2 (08:23→20:25)
[2021-01-10] MEDS: nystatin 500,000 unit/5ML UD oral suspension PO SCH ×3 (08:23→21:48)
[2021-01-10] MEDS: brimonidine 0.2% 5 ML ophthalmic drops EACHEYE SCH ×2 (08:25→20:38)
[2021-01-10] MEDS: normal saline 1000ml 1,000 ML IV SCH ×2 (08:25→16:52)
[2021-01-10] MEDS: insulin Lispro (HumaLOG) vial - multi-dose SQ SCH ×2 (08:52→14:45)
[2021-01-10 09:21] LABS: TOTAL CELLS COUNTED 100
[2021-01-10 09:22] LABS: PLATELET ESTIMATE NORMAL; SMUDGE CELLS 1+
[2021-01-10] MEDS: LORazepam 2 mg/ml vial IV PRN ×2 (10:10→23:35)
[2021-01-10] MEDS: morphine 2 MG/ML inj. syringe IV PRN (11:02)
[2021-01-10 15:57] LABS: ABG BASE EXCESS 5.3 mmol/L (-2.0-2.0); ABG HCO3 29.4 mmol/L (22.0-26.0); ABG OXYGEN SATURATION 83.4 % (94-97); ABG PCO2 (T) 40.4 mmHg (32.0-45.0); ALLEN'S TEST POSITIVE; FCOHb 0.4 % (0.0-3.9); FLOW 45 L/min; FMetHb 0.3 % (0.0-1.5); FO2Hb 82.8 % (94-97); PATIENT TEMPERATURE 36.6; TOTAL HEMOGLOBIN 12.2 G/dl (12.0-16.0)
[2021-01-10] MEDS: atorvastatin 20mg tablet PO SCH (20:30)
[2021-01-10] MEDS: insulin glargine (Lantus) pen - multi-dose SQ SCH (21:53)
[2021-01-10] MEDS: zolpidem 5mg tablet PO PRN (21:56)
[2021-01-11] VITALS (27 sets, daily range): BP systolic 78–136; BP diastolic 36–70
[2021-01-11] MEDS: dexmedetomidine/D5W 100mL 100 ML IV SCH ×3 (01:18→23:04)
[2021-01-11] MEDS: morphine 2 MG/ML inj. syringe IV PRN ×3 (02:19→17:20)
[2021-01-11] MEDS: insulin Lispro (HumaLOG) vial - multi-dose SQ SCH ×3 (02:31→22:44)
[2021-01-11] MEDS: amLODIPine 5mg tablet PO SCH (08:00)
[2021-01-11] MEDS: metoprolol tartrate 50mg tablet PO SCH ×2 (08:00→20:00)
[2021-01-11] MEDS: levoTHYROXINE sod inj. 100mcg/5 ml vial IV SCH (08:00)
[2021-01-11] MEDS: K and/or MAG REPLACEMENT MC SCH ×2 (08:00→20:00)
[2021-01-11] MEDS: losartan 50mg tablet PO SCH (08:00)
[2021-01-11] MEDS: budesonide 0.5mg/2ml UD nebule IH SCH ×2 (08:28→18:42)
[2021-01-11] MEDS: nystatin 500,000 unit/5ML UD oral suspension PO SCH ×3 (08:31→21:13)
[2021-01-11] MEDS: enoxaparin 100mg/ml syringe SUBCUT SCH ×2 (08:31→21:13)
[2021-01-11] MEDS: methylPREDNISolone sod succ/PF 40mg inj. IV SCH ×3 (08:31→21:20)
[2021-01-11] MEDS: ARIPIPRAZOLE 15 MG TABLET PO SCH (08:32)
[2021-01-11] MEDS: oxybutynin 5mg tablet PO SCH ×2 (08:32→21:12)
[2021-01-11] MEDS: gabapentin 300mg capsule PO SCH ×3 (08:34→21:12)
[2021-01-11] MEDS: buPROPion SR 150mg tablet PO SCH ×2 (08:34→21:12)
[2021-01-11] MEDS: cholecalciferol (vitamin D3) 1,000 unit (25mcg) tablet PO SCH (08:34)
[2021-01-11] MEDS: pantoprazole 40mg Tablet.DR PO SCH (08:34)
[2021-01-11] MEDS: lactobacillus rhamnosus 10,000 MMU CELLS/CAPSULE PO SCH ×2 (08:34→21:12)
[2021-01-11] MEDS: loratadine 10mg tablet PO SCH (08:36)
[2021-01-11] MEDS: lactose-reduced food (Ensure Enlive) - 237ml bottle PO SCH (08:38)
[2021-01-11] MEDS: brimonidine 0.2% 5 ML ophthalmic drops EACHEYE SCH ×2 (08:38→20:00)
[2021-01-11] MEDS: LORazepam 2 mg/ml vial IV PRN ×2 (09:26→15:23)
[2021-01-11] MEDS: normal saline 1000ml 1,000 ML IV SCH (13:14)
[2021-01-11 13:26] LABS: BASOPHILS % (AUTO) 0.2 % (0-1); EOSINOPHILS # (AUTO) 0.1 X10'3 (0-0.9); EOSINOPHILS % (AUTO) 0.3 % (0-6); HEMATOCRIT 29.9 % (35.0-45.0); HEMOGLOBIN 9.4 g/dl (12.0-16.0); LYMPHOCYTES # (AUTO) 0.6 X10'3 (1.1-4.8); LYMPHOCYTES % (AUTO) 2.6 % (21-51); MEAN CORPUSCULAR HEMOGLOBIN 28.9 PG (27.0-31.0); MEAN CORPUSCULAR HGB CONC 31.5 g/dL (33.0-36.5); MEAN CORPUSCULAR VOLUME 91.7 FL (78-98); MEAN PLATELET VOLUME 9.7 FL (7.4-10.4); MONOCYTES # (AUTO) 0.7 X10'3 (0-0.9); MONOCYTES % (AUTO) 2.7 % (2-12); NEUTROPHILS # (AUTO) 23.2 X10'3 (1.8-7.7); NEUTROPHILS % (AUTO) 94.2 % (42-75); PLATELET COUNT 230 X10'3 (140-440); RED BLOOD COUNT 3.26 X10'6 (4.20-5.60); RED CELL DISTRIBUTION WIDTH 14.5 % (11.5-14.5); WHITE BLOOD COUNT 24.6 X10'3 (4.5-11.0)
[2021-01-11 13:37] LABS: D-DIMER 1.77 MG/L FEU (0-0.50)
[2021-01-11 13:41] LABS: ALANINE AMINOTRANSFERASE 57 U/L (12-78); ALBUMIN 1.9 G/DL (3.4-5.0); ALBUMIN/GLOBULIN RATIO 0.8 (1.1-1.5); ALKALINE PHOSPHATASE 67 IU/L (46-116); ANION GAP 10 (8-16); ASPARTATE AMINO TRANSFERASE 34 U/L (10-37); BILIRUBIN,TOTAL 0.5 MG/DL (0.1-1.0); BLOOD UREA NITROGEN 38 MG/DL (7-18); CHLORIDE 102 MMOL/L (99-107); CREATININE 0.95 MG/DL (0.40-0.90); GLUCOSE 391 MG/DL (70-104); POTASSIUM 4.2 MMOL/L (3.5-5.1); SODIUM 137 MMOL/L (135-145); TOTAL CARBON DIOXIDE 25.5 MMOL/L (24-32); TOTAL PROTEIN 4.3 G/DL (6.4-8.2); eGFR 60 ML/MIN
[2021-01-11] MEDS: acetaminophen 325mg tablet PO PRN (13:45)
[2021-01-11 13:48] LABS: C-REACTIVE PROTEIN 0.09 MG/DL (0.0-0.5); MAGNESIUM 2.4 MG/DL (1.5-2.4); PHOSPHORUS 4.5 MG/DL (2.3-4.5); PREALBUMIN 39.1 MG/DL (19-36)
[2021-01-11 14:03] LABS: LACTATE DEHYDROGENASE 462 U/L (81-234)
[2021-01-11 14:16] LABS: ANISOCYTOSIS 1+; PLATELET ESTIMATE NORMAL; TOTAL CELLS COUNTED 100
[2021-01-11] MEDS ORDERED: LORazepam 2 mg/ml vial IV PRN (17:30)
[2021-01-11] MEDS ORDERED: LORazepam 2 mg/ml vial ONE (17:32)
[2021-01-11] MEDS ORDERED: midazolam 1 mg/ML 2ml injection ONE (17:57)
[2021-01-11] MEDS ORDERED: midazolam 100mg in NS 100ml 100 ML IV PRN (18:05)
[2021-01-11 18:33] LABS: ABG HCO3 20.6 mmol/L (22.0-26.0); ABG OXYGEN SATURATION 88.4 % (94-97); ABG PCO2 (T) 43.1 mmHg (32.0-45.0); ABG PO2 (T) 63.1 mmHg (75.0-100.0); ALLEN'S TEST POSITIVE; FCOHb 0.3 % (0.0-3.9); FMetHb 0.4 % (0.0-1.5); FO2Hb 87.8 % (94-97); PATIENT TEMPERATURE 36.1; PEEP 5 cm H2O; RESPIRATORY RATE 20 b/min; TIDAL VOLUME 450 mL; TOTAL HEMOGLOBIN 11.1 G/dl (12.0-16.0)
[2021-01-11] MEDS: atorvastatin 20mg tablet PO SCH (21:11)
[2021-01-11] MEDS: midodrine tablet 2.5 MG TABLET PO SCH (21:11)
[2021-01-11] MEDS: NORepinephrine 8mg/ 250ml NS 250 ML IV SCH (22:30)
[2021-01-11] MEDS ORDERED: NORepinephrine 8mg/ 250ml NS 250 ML IV ONE (22:36)
[2021-01-11] MEDS: insulin glargine (Lantus) pen - multi-dose SQ SCH (22:43)
[2021-01-12] VITALS (20 sets, daily range): BP systolic 85–129; BP diastolic 31–73
[2021-01-12] MEDS: midodrine tablet 2.5 MG TABLET PO SCH ×2 (00:52→08:37)
[2021-01-12] MEDS: insulin Lispro (HumaLOG) vial - multi-dose SQ SCH (02:18)
[2021-01-12 02:46] LABS: ABG BASE EXCESS -1.4 mmol/L (-2.0-2.0); ABG HCO3 23.8 mmol/L (22.0-26.0); ABG OXYGEN SATURATION 87.9 % (94-97); ABG PCO2 (T) 41.3 mmHg (32.0-45.0); ABG PO2 (T) 59.3 mmHg (75.0-100.0); ALLEN'S TEST POSITIVE; FCOHb 0.1 % (0.0-3.9); FMetHb 0.3 % (0.0-1.5); FO2Hb 87.5 % (94-97); PATIENT TEMPERATURE 36.7; PEEP 5 cm H2O; RESPIRATORY RATE 20 b/min; TIDAL VOLUME 450 mL; TOTAL HEMOGLOBIN 11.2 G/dl (12.0-16.0)
[2021-01-12] MEDS: FENTANYL-0.9 % NACL/PF 100 ML IV PRN ×3 (03:46→15:33)
[2021-01-12] MEDS: dexmedetomidine/D5W 100mL 100 ML IV SCH (03:47)
[2021-01-12 06:13] LABS: BASOPHILS # (AUTO) 0.1 X10'3 (0-0.2); BASOPHILS % (AUTO) 0.3 % (0-1); EOSINOPHILS % (AUTO) 0.1 % (0-6); HEMATOCRIT 31.5 % (35.0-45.0); LYMPHOCYTES % (AUTO) 2.7 % (21-51); MEAN CORPUSCULAR HEMOGLOBIN 29.2 PG (27.0-31.0); MEAN CORPUSCULAR HGB CONC 31.8 g/dL (33.0-36.5); MEAN CORPUSCULAR VOLUME 91.9 FL (78-98); MEAN PLATELET VOLUME 10.1 FL (7.4-10.4); MONOCYTES # (AUTO) 1.5 X10'3 (0-0.9); NEUTROPHILS % (AUTO) 92.9 % (42-75); PLATELET COUNT 251 X10'3 (140-440); RED BLOOD COUNT 3.43 X10'6 (4.20-5.60); RED CELL DISTRIBUTION WIDTH 14.7 % (11.5-14.5)
[2021-01-12 06:18] LABS: CLARITY,URINE CLOUDY (Clear); COLOR,URINE BROWN (Yellow); UA COLLECTION TYPE NON-SPECIFIED
[2021-01-12 06:19] LABS: GLUCOSE, URINE NEGATIVE (Neg); KETONES,URINE NEGATIVE (Neg); LEUKOCYTE ESTERASE ,URINE NEGATIVE (Neg); NITRITES, URINE NEGATIVE (Neg); OCCULT BLOOD,URINE LARGE (Neg); PROTEIN,URINE TRACE mg/dl (Neg); UROBILINOGEN,URINE 0.2 E.U/dL (0.2-1.0)
[2021-01-12 06:22] LABS: D-DIMER 2.57 MG/L FEU (0-0.50)
[2021-01-12 06:23] LABS: WHITE BLOOD COUNT 37.7 X10'3 (4.5-11.0)
[2021-01-12 06:35] LABS: ALBUMIN 2.4 G/DL (3.4-5.0); ALBUMIN/GLOBULIN RATIO 0.9 (1.1-1.5); ALKALINE PHOSPHATASE 72 IU/L (46-116); ANION GAP 9 (8-16); BILIRUBIN,TOTAL 0.7 MG/DL (0.1-1.0); BLOOD UREA NITROGEN 60 MG/DL (7-18); BUN/CREATININE RATIO 33.9 (6.6-38.0); CALCIUM 7.8 MG/DL (8.5-10.1); CHLORIDE 103 MMOL/L (99-107); CREATININE 1.77 MG/DL (0.40-0.90); GLUCOSE 213 MG/DL (70-104); LACTATE DEHYDROGENASE 1815 U/L (81-234); MAGNESIUM 2.6 MG/DL (1.5-2.4); PHOSPHORUS 7.1 MG/DL (2.3-4.5); POTASSIUM 5.3 MMOL/L (3.5-5.1); SODIUM 140 MMOL/L (135-145); TOTAL CARBON DIOXIDE 27.9 MMOL/L (24-32); TOTAL PROTEIN 5.1 G/DL (6.4-8.2); eGFR 29 ML/MIN
[2021-01-12 06:37] LABS: RBC,URINE TNTC /HPF (0-2); YEAST MANY /HPF (NEGATIVE)
[2021-01-12 06:38] LABS: BACTERIA,URINE FEW /HPF (Neg); SQUAMOUS EPITHELIAL CELL,UR FEW /LPF (FEW); WBC,URINE 20-30 /HPF (0-4)
[2021-01-12 06:49] LABS: ALANINE AMINOTRANSFERASE 2882 U/L (12-78); C-REACTIVE PROTEIN < 0.05 MG/DL (0.0-0.5)
[2021-01-12 06:57] LABS: PLATELET ESTIMATE NORMAL; TOTAL CELLS COUNTED 100
[2021-01-12] MEDS ORDERED: levoTHYROXINE 75mcg tablet PO SCH (07:00)
[2021-01-12] MEDS: pantoprazole 40mg Tablet.DR PO SCH (07:30)
[2021-01-12] MEDS: losartan 50mg tablet PO SCH (07:36)
[2021-01-12] MEDS: metoprolol tartrate 50mg tablet PO SCH ×2 (07:36→20:00)
[2021-01-12] MEDS: buPROPion SR 150mg tablet PO SCH ×2 (07:36→20:57)
[2021-01-12] MEDS: amLODIPine 5mg tablet PO SCH (07:36)
[2021-01-12 07:48] LABS: ASPARTATE AMINO TRANSFERASE 2422 U/L (10-37)
[2021-01-12] MEDS: ipratropium/albuterol 3ml nebule NEB PRN (07:58)
[2021-01-12] MEDS: budesonide 0.5mg/2ml UD nebule IH SCH ×2 (07:58→18:58)
[2021-01-12] MEDS ORDERED: sodium bicarbonate (8.4%) 1 mEq/ml syringe ONE ×2 (08:00→22:28)
[2021-01-12] MEDS ORDERED: epiNEPHrine 0.1mg/ml 10ml syringe ONE (08:00)
[2021-01-12] MEDS: nystatin 500,000 unit/5ML UD oral suspension PO SCH ×2 (08:00→13:00)
[2021-01-12] MEDS: lactose-reduced food (Ensure Enlive) - 237ml bottle PO SCH ×2 (08:00→10:39)
[2021-01-12] MEDS: K and/or MAG REPLACEMENT MC SCH (08:00)
[2021-01-12] MEDS ORDERED: calcium chloride 100 MG/1 ML inj IV ONE (08:00)
[2021-01-12] MEDS: brimonidine 0.2% 5 ML ophthalmic drops EACHEYE SCH ×2 (08:00→20:00)
[2021-01-12] MEDS ORDERED: sod chloride 0.9% 10ml flush syringe IV ONE (08:00)
[2021-01-12] MEDS: methylPREDNISolone sod succ/PF 40mg inj. IV SCH ×2 (08:36→20:57)
[2021-01-12] MEDS: gabapentin 300mg capsule PO SCH ×3 (08:37→20:57)
[2021-01-12] MEDS: cholecalciferol (vitamin D3) 1,000 unit (25mcg) tablet PO SCH (08:37)
[2021-01-12] MEDS: loratadine 10mg tablet PO SCH (08:37)
[2021-01-12] MEDS: lactobacillus rhamnosus 10,000 MMU CELLS/CAPSULE PO SCH ×2 (08:37→20:57)
[2021-01-12] MEDS: oxybutynin 5mg tablet PO SCH ×2 (08:38→20:57)
[2021-01-12] MEDS: normal saline 1000ml 1,000 ML IV SCH ×2 (08:47→11:15)
[2021-01-12 09:19] LABS: ABG BASE EXCESS -2.7 mmol/L (-2.0-2.0); ABG HCO3 24.7 mmol/L (22.0-26.0); ABG OXYGEN SATURATION 87.7 % (94-97); ABG PCO2 (T) 56.3 mmHg (32.0-45.0); ABG PO2 (T) 66.9 mmHg (75.0-100.0); ALLEN'S TEST POSITIVE; FCOHb 0.3 % (0.0-3.9); FMetHb 0.4 % (0.0-1.5); FO2Hb 87.1 % (94-97); PATIENT TEMPERATURE 36.9; PEEP 10 cm H2O; RESPIRATORY RATE 25 b/min; TIDAL VOLUME 351 mL; TOTAL HEMOGLOBIN 9.9 G/dl (12.0-16.0)
[2021-01-12] MEDS: ARIPIPRAZOLE 15 MG TABLET PO SCH (09:19)
[2021-01-12] MEDS: enoxaparin 100mg/ml syringe SUBCUT SCH ×2 (09:43→20:58)
[2021-01-12] MEDS: NORepinephrine 8mg/ 250ml NS 250 ML IV SCH ×2 (12:44→23:02)
[2021-01-12] MEDS: insulin regular, human U-100 3ml vial - multi-dose SQ SCH ×2 (15:44→21:05)
[2021-01-12] MEDS: midodrine 5mg tablet PO SCH (16:56)
[2021-01-12] MEDS ORDERED: cefepime 1GM/NS ADD-VANTAGE 100 ML IV SCH (20:30)
[2021-01-12] MEDS ORDERED: cefepime 1GM in D5W 50mL 50 ML IV SCH (20:50)
[2021-01-12] MEDS: insulin glargine (Lantus) pen - multi-dose SQ SCH (21:03)
[2021-01-12] MEDS ORDERED: amiodarone 150mg/dext, iso-os 100 ML IV ONE (21:20)
[2021-01-12] MEDS ORDERED: phenylephrine inj 50 MG in normal saline 250ml IV soln 245 ML IV PRN ×2 (21:20→21:35)
[2021-01-12] MEDS ORDERED: amiodarone/D5 360MG/200ML BAG 200 ML IV SCH (21:20)
[2021-01-12 21:37] LABS: ABG BASE EXCESS -13.8 mmol/L (-2.0-2.0); ABG HCO3 13.9 mmol/L (22.0-26.0); ABG OXYGEN SATURATION 93.3 % (94-97); ABG PCO2 (T) 41.1 mmHg (32.0-45.0); ABG PO2 (T) 97.7 mmHg (75.0-100.0); ALLEN'S TEST POSITIVE; FCOHb 0.3 % (0.0-3.9); FMetHb 0.7 % (0.0-1.5); FO2Hb 92.4 % (94-97); PATIENT TEMPERATURE 37.4; PEEP 10 cm H2O; RESPIRATORY RATE 25 b/min; TOTAL HEMOGLOBIN 8.3 G/dl (12.0-16.0)
[2021-01-12] MEDS ORDERED: sodium bicarbonate (8.4%) inj. 150 MEQ in dextrose 5%-water 1,000 ML IV SCH (21:45)
[2021-01-12] MEDS ORDERED: epiNEPHrine inj 5 MG in normal saline 250ml IV soln 245 ML IV PRN (22:20)
[2021-01-12] MEDS ORDERED: acetaminophen 1,000mg/100ml IV 100 ML IV ONE (22:33)
[2021-01-12] MEDS ORDERED: NORMAL SALINE IV ONE (23:10)
[2021-01-12] MEDS ORDERED: TOBRAMYCIN IV ONE (23:10)
[2021-01-13] VITALS: BP 148/101
[2021-01-13] MEDS: midodrine 5mg tablet PO SCH
[2021-01-13 00:11] LABS: BASOPHILS # (AUTO) 0.1 X10'3 (0-0.2); EOSINOPHILS % (AUTO) 0.1 % (0-6); NEUTROPHILS % (AUTO) 88.9 % (42-75)
[2021-01-13 00:12] LABS: BASOPHILS % (AUTO) 0.3 % (0-1); EOSINOPHILS # (AUTO) 0.1 X10'3 (0-0.9); LYMPHOCYTES # (AUTO) 2.6 X10'3 (1.1-4.8); LYMPHOCYTES % (AUTO) 6.9 % (21-51); MEAN CORPUSCULAR HEMOGLOBIN 29.6 PG (27.0-31.0); MEAN CORPUSCULAR HGB CONC 30.7 g/dL (33.0-36.5); MEAN CORPUSCULAR VOLUME 96.5 FL (78-98); MEAN PLATELET VOLUME 9.7 FL (7.4-10.4); MONOCYTES # (AUTO) 1.4 X10'3 (0-0.9); MONOCYTES % (AUTO) 3.8 % (2-12); NEUTROPHILS # (AUTO) 33.1 X10'3 (1.8-7.7); PLATELET COUNT 160 X10'3 (140-440); RED BLOOD COUNT 1.83 X10'6 (4.20-5.60); RED CELL DISTRIBUTION WIDTH 15.6 % (11.5-14.5)
[2021-01-13 00:19] LABS: D-DIMER 2.27 MG/L FEU (0-0.50); PARTIAL THROMBOPLASTIN TIME 28 SECONDS (22-32)
[2021-01-13 00:27] LABS: HEMOGLOBIN 5.4 g/dl (12.0-16.0); WHITE BLOOD COUNT 37.3 X10'3 (4.5-11.0)
[2021-01-13 00:28] LABS: HEMATOCRIT 17.6 % (35.0-45.0)
[2021-01-13 00:32] LABS: ALBUMIN 1.3 G/DL (3.4-5.0); ALBUMIN/GLOBULIN RATIO 0.7 (1.1-1.5); ALKALINE PHOSPHATASE 66 IU/L (46-116); ANION GAP 16 (8-16); BILIRUBIN,TOTAL 0.6 MG/DL (0.1-1.0); BLOOD UREA NITROGEN 67 MG/DL (7-18); BUN/CREATININE RATIO 24.6 (6.6-38.0); CHLORIDE 111 MMOL/L (99-107); CREATININE 2.72 MG/DL (0.40-0.90); GLUCOSE 146 MG/DL (70-104); MAGNESIUM 2.8 MG/DL (1.5-2.4); SODIUM 144 MMOL/L (135-145); TOTAL PROTEIN 3.1 G/DL (6.4-8.2); eGFR 18 ML/MIN
[2021-01-13 00:38] LABS: PHOSPHORUS 10.3 MG/DL (2.3-4.5)
[2021-01-13 00:39] LABS: POTASSIUM 7.5 MMOL/L (3.5-5.1)
[2021-01-13 00:40] LABS: CALCIUM 12.5 MG/DL (8.5-10.1)
[2021-01-13 00:45] LABS: MEAN CORPUSCULAR HEMOGLOBIN 29.4 PG (27.0-31.0); MEAN CORPUSCULAR HGB CONC 28.7 g/dL (33.0-36.5); MEAN CORPUSCULAR VOLUME 102.5 FL (78-98); MEAN PLATELET VOLUME 9.7 FL (7.4-10.4); PLATELET COUNT 149 X10'3 (140-440); RED BLOOD COUNT 1.83 X10'6 (4.20-5.60); RED CELL DISTRIBUTION WIDTH 16.4 % (11.5-14.5)
[2021-01-13 00:57] VITALS: BP 0/0
[2021-01-13 00:57] LABS: WHITE BLOOD COUNT 50.9 X10'3 (4.5-11.0)
[2021-01-13 00:58] LABS: HEMATOCRIT 18.8 % (35.0-45.0); HEMOGLOBIN 5.4 g/dl (12.0-16.0)
[2021-01-13 01:00] LABS: ASPARTATE AMINO TRANSFERASE 3279 U/L (10-37)
[2021-01-13 01:01] LABS: ALANINE AMINOTRANSFERASE 4487 U/L (12-78)
[2021-01-13 03:04] LABS: NUCLEATED RED BLOOD CELLS 5 /100WBC (0-0); TOTAL CELLS COUNTED 100
[2021-01-13 03:05] LABS: ANISOCYTOSIS 1+; BURR CELLS FEW; PLATELET ESTIMATE NORMAL
[2021-01-13] MEDS ORDERED: mineral oil/petrolatum ophthal oint EACHEYE SCH (08:00)
[2021-01-13] MEDS ORDERED: pantoprazole 40 MG vial IV SCH (08:00)
== END 2021-01-13 05:48 | DRG 208 ==
LOC: ER 21:57 → ED HOLD 12-27 01:43 → EDBEDREQ 12-27 09:46 → ORTHO 4S 12-27 10:55 → CICU 2S 01-04 09:38
PROVIDERS: ADMIT Internal Medicine; ATTEND Internal Medicine Critical Care Medicine
PROC: XW033E5 Introduction of Remdesivir Anti-infective into Peripheral Vein, Percutaneous Approach, New Technology Group 5 (ICD-10-PCS; 2020-12-28)
PROC: 5A0935A Assistance with Respiratory Ventilation, Less than 24 Consecutive Hours, High Flow/Velocity Cannula (ICD-10-PCS; 2020-12-28)
PROC: B32T1ZZ Computerized Tomography (CT Scan) of Left Pulmonary Artery using Low Osmolar Contrast (ICD-10-PCS; 2020-12-28)
PROC: B3201ZZ Computerized Tomography (CT Scan) of Thoracic Aorta using Low Osmolar Contrast (ICD-10-PCS; 2020-12-28)
PROC: B32S1ZZ Computerized Tomography (CT Scan) of Right Pulmonary Artery using Low Osmolar Contrast (ICD-10-PCS; 2020-12-28)
PROC: 5A0935A Assistance with Respiratory Ventilation, Less than 24 Consecutive Hours, High Flow/Velocity Cannula (ICD-10-PCS; 2020-12-29)
PROC: 5A0935A Assistance with Respiratory Ventilation, Less than 24 Consecutive Hours, High Flow/Velocity Cannula (ICD-10-PCS; 2020-12-30)
PROC: B32T1ZZ Computerized Tomography (CT Scan) of Left Pulmonary Artery using Low Osmolar Contrast (ICD-10-PCS; 2020-12-30)
PROC: B3201ZZ Computerized Tomography (CT Scan) of Thoracic Aorta using Low Osmolar Contrast (ICD-10-PCS; 2020-12-30)
PROC: B32S1ZZ Computerized Tomography (CT Scan) of Right Pulmonary Artery using Low Osmolar Contrast (ICD-10-PCS; 2020-12-30)
PROC: 5A0935A Assistance with Respiratory Ventilation, Less than 24 Consecutive Hours, High Flow/Velocity Cannula (ICD-10-PCS; 2020-12-31)
PROC: 5A0935A Assistance with Respiratory Ventilation, Less than 24 Consecutive Hours, High Flow/Velocity Cannula (ICD-10-PCS; 2021-01-01)
PROC: 5A09457 Assistance with Respiratory Ventilation, 24-96 Consecutive Hours, Continuous Positive Airway Pressure (ICD-10-PCS; 2021-01-02)
PROC: 5A0935A Assistance with Respiratory Ventilation, Less than 24 Consecutive Hours, High Flow/Velocity Cannula (ICD-10-PCS; 2021-01-02)
PROC: XW033H5 Introduction of Tocilizumab into Peripheral Vein, Percutaneous Approach, New Technology Group 5 (ICD-10-PCS; 2021-01-04)
PROC: 5A09557 Assistance with Respiratory Ventilation, Greater than 96 Consecutive Hours, Continuous Positive Airway Pressure (ICD-10-PCS; 2021-01-04)
PROC: 02HV33Z Insertion of Infusion Device into Superior Vena Cava, Percutaneous Approach (ICD-10-PCS; 2021-01-05)
PROC: B548ZZA Ultrasonography of Superior Vena Cava, Guidance (ICD-10-PCS; 2021-01-05)
PROC: 5A0935A Assistance with Respiratory Ventilation, Less than 24 Consecutive Hours, High Flow/Velocity Cannula (ICD-10-PCS; 2021-01-09)
PROC: 5A09357 Assistance with Respiratory Ventilation, Less than 24 Consecutive Hours, Continuous Positive Airway Pressure (ICD-10-PCS; 2021-01-10)
PROC: 5A0935A Assistance with Respiratory Ventilation, Less than 24 Consecutive Hours, High Flow/Velocity Cannula (ICD-10-PCS; 2021-01-10)
PROC: 5A1945Z Respiratory Ventilation, 24-96 Consecutive Hours (ICD-10-PCS; principal; 2021-01-11)
PROC: 0BH17EZ Insertion of Endotracheal Airway into Trachea, Via Natural or Artificial Opening (ICD-10-PCS; 2021-01-11)
DX: U07.1 COVID-19 (principal); J12.82 Pneumonia due to coronavirus disease 2019; J80 Acute respiratory distress syndrome; R57.9 Shock, unspecified; K55.9 Vascular disorder of intestine, unspecified; N17.9 Acute kidney failure, unspecified; E87.2 Acidosis; I47.1 Supraventricular tachycardia; E03.9 Hypothyroidism, unspecified; E66.01 Morbid (severe) obesity due to excess calories; E78.5 Hyperlipidemia, unspecified; R74.01 Elevation of levels of liver transaminase levels; I12.9 Hypertensive chronic kidney disease with stage 1 through stage 4 chronic kidney disease, or unspecified chronic kidney disease; E87.5 Hyperkalemia; K72.90 Hepatic failure, unspecified without coma; I46.9 Cardiac arrest, cause unspecified; Z66 Do not resuscitate; F41.9 Anxiety disorder, unspecified; F32.A Depression, unspecified; G62.9 Polyneuropathy, unspecified; N18.30 Chronic kidney disease, stage 3 unspecified; N32.81 Overactive bladder; Z68.38 Body mass index [BMI] 38.0-38.9, adult; Z79.52 Long term (current) use of systemic steroids; Z90.49 Acquired absence of other specified parts of digestive tract; Z79.899 Other long term (current) drug therapy
CPT/HCPCS: 36415; 36573; 36600; 71045; 71275; 74018; 76937; 80053; 81001; 82803; 82948; 83036; 83605; 83615; 83735; 83880; 84100; 84134; 84145; 84443; 84484; 85007; 85018; 85025; 85027; 85379; 85610; 85730; 86140; 87040; 87070; 87077; 87081; 87088; 87186; 92950; 93005; 93970; 94002; 94003; 94640; 94660; 94667; 94760; 94799; 97110; 97116; 97161; 97530; 97535; 99285; G0378; J0131; J0171; J0456; J0692; J0696; J0780; J1100; J1644; J1650; J1815; J1940; J2060; J2250; J2270; J2370; J2405; J2920; J2930; J3010; J3262; J3490; J7030; J7050; J7626; Q9967